=== PATIENT | male | born 1960 | race Asian ===

== ENCOUNTER 2020-01-25 15:40 | Inpatient (IN) | payer MEDICAID, SELFPAY ==
[2020-01-25] VITALS (21 sets, daily range): BP systolic 99–137; BP diastolic 69–96; PULSE 80–100; RESP 16–18; TEMP 36.7–37.2; O2SAT 91–99; BMI 23.6; BMI 23.1
--- NOTE | 2020-01-25 | IR_ITS ---
APPROVED REPORT Patient Location: Outpatient Laborer Shellfish Processing: HONG Gamboa RT (R) PROCEDURES Left heart catheterization Left ventriculogram Selective coronary angiogram Drug-eluting stent deployment to the proximal LAD preceded by thrombectomy Drug-eluting stent deployment to the mid dominant right coronary artery INDICATION Acute anterior ST elevation myocardial infarction, Coronary artery disease Informed consent was obtained prior to the procedure. TECHNIQUE One percent lidocaine used to anesthetize the right anterior aspect of the wrist. The right radial artery was accessed via the Seldinger technique. A 6 Citizen Of [place] sheath was placed in the right radial artery. 2.5 mg of verapamil, 800 mcg of nitroglycerin, 1mg Lidocaine and 5000 U Heparin were given through the arterial sheath. The Abdiel catheter was also used to perform left heart catheterization, left ventriculogram and selective coronary angiogram. Therapeutic heparin was administered along with Brilinta in the emergency department. The catheter was used to intubate the left main artery and a Choice PT wire was placed into the LAD. Because of the thrombus in the LAD a penumbra was used to aspirate the proximal LAD. Following this a 3 mm x 15 mm resolute yogi stent was deployed at 20 roland reducing the critical stenosis to 0%. 800 mcg of intracoronary nitroglycerin was administered after the procedure. RAMAN II flow was present before the procedure with RAMAN-3 flow after the procedure. Following this the catheter was used to intubate the right coronary artery and the same wire was placed distally. A 4 mm x 12 mm resolute yogi stent was deployed at 20 roland reducing the critical stenosis to 0%. RAMAN-3 flow was present before and after the procedure. At the end of the procedure the left ventriculogram and left heart catheterization was performed with the same catheter. At the end the procedure the apparatus was removed the sheath was removed and hemostasis was achieved using TR banding patient was transferred to the postop holding her stable condition ANGIOGRAPHIC RESULTS The left main artery Normal The left anterior descending artery Proximal complex 90% stenosis with thrombus. There is additional 10% mid stenoses followed by a long 60 to 70% distal stenosis The circumflex artery Nondominant normal The right coronary artery Large dominant with proximal luminal irregularities and has a mid vessel focal 90% stenosis The NEGRETE ventriculogram reveals Anterior apical akinesis estimated ejection fraction 20% The left ventricular end-diastolic pressure 40 mmHg IMPRESSION Acute anterior ST elevation myocardial infarction Successful thrombectomy followed by drug-eluting stent to the proximal LAD reducing the critical disease to 0% Persistent long moderate stenosis in the mid to distal LAD Critical disease in the mid dominant right coronary Successful stenting of a critically diseased mid large dominant right coronary artery reducing the stenosis to 0% Severely reduced ejection fraction with akinetic anterior apical wall Severely elevated LVEDP PLAN 1. Brilinta plus aspirin for 1 year 2. Standard therapy for systolic heart failure including Entresto and carvedilol along with loop diuretics and spironolactone and low-dose digoxin 3. LDL less than 55 to be achieved with high intensity statin 4. Echocardiogram prior to discharge home 5. Continuous telemetry monitoring for least 48 hours post OR 6. Patient should be discharged home with a LifeVest due to LV dysfunction Electronically signed by : Cruzito Ayala, 01/25/2020 18:07:51
--- NOTE | 2020-01-25 08:48 | ECG_ITS ---
APPROVED REPORT Exam: Resting ECG HR:78 bpm ECG Measurements Heart Rate 78 AXES TX 142 P 61 QRSd 96 QRS 213 QT 378 T 94 QTc 430 Conclusion Normal sinus rhythm Right superior axis deviation Late R-wave progression T wave abnormality, consider lateral ischemia Abnormal ECG Electronically signed by : Adams Bangura, 01/29/2020 13:58:11
--- NOTE | 2020-01-25 15:42 | XR_ITS ---
PROCEDURE: XR CHEST PORTABLE CLINICAL HISTORY: chest pain COMPARISON: No exams were available for comparison FINDINGS: The cardiomediastinal silhouette and pulmonary vascularity are within normal limits. The lungs are clear without infiltrates, suspicious nodules, or pleural effusions. There is a 9 mm opacity overlying the lower lung on the left which may be due to nipple shadow. No acute bony findings. IMPRESSION: Left-sided nodular opacity possibly due to nipple shadow and could be confirmed with nipple markers otherwise negative Dictated by: Rafa Jorgensen MD 01/25/2020 16:02 Rafa Jorgensen MD in [facility] 01/25/2020 16:02
--- NOTE | 2020-01-25 15:49 | PC.NURSE ---
rad at BS
[2020-01-25 16:01] LABS: Basophils % 0.2 % (0.1-2.0); Eosinophils # 0.2 K/mm3 (0.0-0.4); Eosinophils % 0.9 % (0.1-12.0); Hematocrit 43.6 % (42.0-52.0); Lymphocytes # 1.1 K/mm3 (0.7-4.5); Lymphocytes % 5.4 % (10-50); Mean Corpuscular HGB Conc 34.4 g/dL (31.8-35.4); Mean Corpuscular Hemoglobin 32.9 pg (27.0-31.2); Mean Corpuscular Volume 95.6 fl (80-94); Mean Platelet Volume 7.4 fl (7.4-10.4); Neutrophils # 18.1 K/mm3 (1.8-7.8); Neutrophils % 88.5 % (37.0-80.0); Platelet Count 332 K/mm3 (142-424); Red Blood Count 4.56 M/mm3 (4.60-6.20); Red Cell Distribution Width 13.5 % (11.5-17.5); White Blood Count 20.4 K/mm3 (4.8-10.8)
[2020-01-25 16:07] LABS: MANUAL DIFFERENTIAL MANUAL DIFFERENTIAL (MANUAL DIFF)
[2020-01-25 16:11] LABS: Anion Gap 10.8 mEq/L (5-15); Blood Urea Nitrogen 14 mg/dl (9-20); Calcium 9.5 mg/dl (8.4-10.2); Carbon Dioxide 29 mmol/L (22.0-30.0); Chloride 104 mmol/L (98-107); Creatinine Clearance Estimated 80 mL/min (50-200); Estimated Glomerular Filt Rate 86 ml/min (>60); GFR (African American) 104 ML/MIN (>60); Glucose 154 mg/dl (74-100); Potassium 3.8 mmoL/L (3.5-5.1); Sodium 140 mmol/L (136-145)
[2020-01-25 16:14] LABS: Lymphocytes % 7 % (10-50); Monocytes % 5 % (2-9); Neutrophils % 88 % (42-76); Total Cells Counted 100
[2020-01-25 16:15] LABS: Platelet Estimate Normal; RBC Morphology Normal
--- NOTE | 2020-01-25 16:16 | HMH.EDCP ---
ED Disposition Clinical Impression: NSTEMI (non-ST elevated myocardial infarction) Leukocytosis Qualifiers: Leukocytosis type: bandemia Qualified Code(s): D72.825 - Bandemia Disposition: Admitted As Inpatient Condition on Discharge: Serious Referrals: PCP,No [Primary Care Provider] - - Critical Care Critical Care Time: Yes Attestation: On 01/25/20, the high probability of a clinically significant, sudden or life threatening deterioration of the following system(s) required my full and direct attention, intervention and personal management. The time I documented below is in addition to time spent performing reported procedures but includes the following listed in this critical care notation. 30 min total time Total Critical Care Time: 30 Vital system(s) involved:: Circulatory Failure My critical care processes included: Assessment & monitoring of V/S, Initial and Re-exams, Data Review/Interpretation, Coordinating Care, Medication Orders and management, Documentation Medical Decision Making - Medical Records Medical records reviewed: Yes: I reviewed the patient's medical records. - Cheng Inquiry Pt receiving controlled substance: Yes Cheng was queried for this patient: No Risks and benefits of using a controlled substance: were discussed with pt by me Vital Signs: 01/25/20 15:41 Temperature 98.9 F Temperature Source Oral Pulse Rate [Apical] 95 H Respiratory Rate 16 Blood Pressure [Right Arm] 130/96 H Blood Pressure Mean [Right Arm] 107 Blood Pressure Source [Right Arm] Automatic Cuff Blood Pressure Position [Right Arm] Sitting 02 Sat by Pulse Oximetry 99 Oxygen Delivery Method Room Air - Lab Data Lab Results 01/25/20 15:48: WBC 20.4 H*, RBC 4.56 L, Hgb 15.0, Hct 43.6, MCV 95.6 H, MCH 32.9 H, MCHC 34.4, RDW 13.5, Plt Count 332, MPV 7.4, Neut % (Auto) 88.5 H, Lymph % (Auto) 5.4 L, [place] % (Auto) 5.0, Eos % (Auto) 0.9, Baso % (Auto) 0.2, Neut # (Auto) 18.1 H, Lymph # (Auto) 1.1, [place] # (Auto) 1.0, Eos # (Auto) 0.2, Baso # (Auto) 0.0, Total Counted 100, Neutrophils % (Manual) 88 H, Lymphocytes % (Manual) 7 L, Monocytes % (Manual) 5, Platelet Estimate Normal, RBC Morphology Normal 01/25/20 15:48: Sodium 140, Potassium 3.8, Chloride 104, Carbon Dioxide 29, Anion Gap 10.8, BUN 14, Creatinine 0.90, Estimated Creat Clear 80, Estimated GFR 86, Est GFR ( Amer) 104, Glucose 154 H, Calcium 9.5, Troponin I 190.00 H 01/25/20 15:48: NT-Pro-B Natriuret Pep 1800 H 01/25/20 15:48: D-Dimer 0.55 Result diagrams: 01/25/20 15:48 01/25/20 15:48 Orders (Tests/Meds): ED MEDICATIONS Discontinued Medications Generic Name Dose Route Start Last Admin Trade Name Dmitriq PRN Reason Stop Dose Admin Aspirin 324 mg 01/25/20 15:42 01/25/20 16:17 Aspirin 81mg Chewable Tablet PO 01/25/20 15:43 324 mg ONCE ONE Administration Morphine Sulfate 4 mg 01/25/20 16:14 01/25/20 16:19 Morphine 4mg/Ml Syringe IV 01/25/20 16:15 4 mg ONCE ONE Administration Ondansetron HCl 4 mg 01/25/20 16:14 01/25/20 16:19 Ondansetron 4mg/2ml Vial IV 01/25/20 16:15 4 mg ONCE ONE Administration ORDERS Category Date Time Status CTA Chest [CT angio chest] Stat Cat Scan 01/25/20 16:16 Ordered Covid-19 IgG/IgM ([facility]) Stat Lab 01/25/20 16:35 Ordered Troponin I Q3H Lab 01/25/20 18:45 Ordered Troponin I Q3H Lab 01/25/20 21:45 Ordered - Radiology Data #1 Image(s): Chest Image Reviewed: Yes I reviewed the patient's radiology results, Yes I discussed the image results w/the radiologist IMPRESSION: Left-sided nodular opacity possibly due to nipple shadow and could be confirmed with nipple markers otherwise negative - ECG Data Tracing #1 Normal ventricular rate of 94 bpm, normal NV interval, normal QTC. Sinus rhythm with nonspecific changes, ECG initial impression date: 01/25/20 ECG initial impression time: 15:38 - Reevaluation(s) Time: 16:40 Reevaluation #1: Patient was found to hav
--- NOTE | 2020-01-25 16:29 | PC.NURSE ---
Lab notified of troponin being so high they cannot result it, notified, pt states he has a 5/10 pain in his chest, notified, cardiology paged
[2020-01-25 16:30] LABS: D-Dimer 0.55 ug/mL (0.15-8.0)
--- NOTE | 2020-01-25 16:31 | PC.NURSE ---
speaking to Cardiology security control assessor
[2020-01-25 16:33] LABS: NT Pro Brain Natriuretic Pep. 1800 pg/mL (0-125)
--- NOTE | 2020-01-25 16:44 | PC.NURSE ---
Lakia MEYER here to transport pt to cathlab
--- NOTE | 2020-01-25 16:45 | PC.NURSE ---
notified of troponin
--- NOTE | 2020-01-25 16:45 | PC.NURSE ---
EKG taken to Dr Ayala per his request. Dr Ayala wants pt to come to laborer ammunition assembly. lab instructor nurse Lakia Works come down with stretcher as well as list of orders Lucy wants.
--- NOTE | 2020-01-25 16:46 | PC.NURSE ---
PHIL BURT speaking with with Dr Tejada who is bi application developer for service.
--- NOTE | 2020-01-25 16:48 | PC.NURSE ---
Dr Tejada accepted pt, pt going to cathlab at this time
[2020-01-25 17:10] LABS: Coronavirus 19 IgG Antibody Positive (Negative); Coronavirus 19 IgM Antibody Negative (Negative)
--- NOTE | 2020-01-25 17:15 | SUR.PREOP ---
Patient received from ER. Patients is stable, alert and oriented x 4. Blood pressure 133/77, hr sinus tach, rate 115. Respirations 14, oxygen saturation 97% on room air
[2020-01-25 17:50] LABS: Activated Partial Thrombo Time 25.2 seconds (23.6-34.0)
[2020-01-25 18:18] LABS: CATHL Activated Clotting Time > 400 SEC (74-125)
[2020-01-25 18:44] LABS: INR 0.96 (0.9-1.1); Prothrombin Time 10.7 seconds (9.4-11.8)
--- NOTE | 2020-01-25 19:09 | PC.NURSE ---
elise sol in flower shop laborer/designer stated to not give any brilinta tonight.
--- NOTE | 2020-01-25 19:17 | PC.NURSE ---
pt c/o cp notified md aguero whom stated i did not need to take ekg to er to be read and stated he would have pain and to order morphine 4mg iv [id number] as needed for chest pain. pt refused morphine to be given and rn asked if he would take the tylenol and he stated the dull pain is only a 5 on a scale of 0-10 and does NOT want any medications for it.
--- NOTE | 2020-01-25 19:45 | PC.NURSE ---
spoke with [facility] pharmacy regarding morphine order and he stated he is going to put in one time doses as needed.
--- NOTE | 2020-01-25 20:19 | PC.NURSE ---
Brilinta not administered. Loading dose administered in tailings dam laborer.
--- NOTE | 2020-01-25 23:08 | PC.NURSE ---
Pt states pain has improved
[2020-01-26] VITALS (17 sets, daily range): BP systolic 95–115; BP diastolic 53–84; PULSE 78–100; RESP 15–22; TEMP 37.1–37.2; O2SAT 97–100
--- NOTE | 2020-01-26 05:06 | PC.NURSE ---
No acute changes. Pt has slept at intervals. He states that chest pain has improved. Declines any pain medication. (R) radial cath site with DSG is C/D/I. No hematoma or drainage noted. VS have remained stable. Pt is NSR on telemetry. 400 cc Urine output for shift. No other concerns at this time. Will continue to monitor.
[2020-01-26 07:00] LABS: Chloride 104 mmol/L (98-107); Potassium 4.4 mmoL/L (3.5-5.1); Sodium 140 mmol/L (136-145)
[2020-01-26 07:03] LABS: Anion Gap 10.4 mEq/L (5-15); Blood Urea Nitrogen 12 mg/dl (9-20); Calcium 9.6 mg/dl (8.4-10.2); Carbon Dioxide 30 mmol/L (22.0-30.0); Creatinine Clearance Estimated 78 mL/min (50-200); Estimated Glomerular Filt Rate 86 ml/min (>60); GFR (African American) 104 ML/MIN (>60); Glucose 135 mg/dl (74-100)
[2020-01-26 07:08] LABS: MANUAL DIFFERENTIAL MANUAL DIFFERENTIAL (MANUAL DIFF)
[2020-01-26 07:40] LABS: White Blood Count 19.2 K/mm3 (4.8-10.8)
[2020-01-26 07:41] LABS: Red Cell Distribution Width 13.5 % (11.5-17.5)
[2020-01-26 07:42] LABS: Mean Platelet Volume 7.2 fl (7.4-10.4); Platelet Count 270 K/mm3 (142-424)
[2020-01-26 07:43] LABS: Monocytes % 7.1 % (1.7-9.3)
[2020-01-26 07:44] LABS: Basophils % 0.2 % (0.1-2.0); Eosinophils % 0.1 % (0.1-12.0); Lymphocytes # 1.7 K/mm3 (0.7-4.5); Neutrophils # 16.1 K/mm3 (1.8-7.8)
[2020-01-26 07:45] LABS: Monocytes # 1.4 K/mm3 (0.1-1.0)
--- NOTE | 2020-01-26 08:33 | PC.NURSE ---
RT @ BS completing EKG
[2020-01-26 08:40] LABS: Red Blood Count 4.49 M/mm3 (4.60-6.20)
[2020-01-26 08:41] LABS: Hematocrit 43.9 % (42.0-52.0); Hemoglobin 14.5 g/dL (14.1-18.0); Lymphocytes % 8.7 % (10-50); Mean Corpuscular Hemoglobin 32.3 pg (27.0-31.2); Mean Corpuscular Volume 97.8 fl (80-94); Neutrophils % 83.9 % (37.0-80.0)
--- NOTE | 2020-01-26 08:47 | HMH.HP ---
*Chief complaint: Chest pain <LopezInocencia 01/26/20 08:55> *History of present illness: Mr. Tellez is a 59-year-old male who has been relatively healthy who presented to the emergency room yesterday with worsening chest pain. He stated the pain worsened when he was doing his push-ups. He stated he had previous heart discomfort for the past 2 weeks but when it became worse he decided he needed to seek help. He relates that he takes no medicines. He does not have a family physician. He does have a positive family history. He denies previous heart issues and takes no medications. He does smoke daily marijuana, 2 to 3 cigarettes a day. He drinks alcohol occasionally and has had GI upsets with this. He does work which requires lifting, pushing and pulling. With evaluation in the emergency room he was found to have a severely elevated troponin at 190. His BNP was 1800. Electrolytes were normal and kidney function was normal. White blood cell count was elevated at 20,400. He was felt to have acute coronary syndrome and was taken Emergently to catheterization lab for intervention. He was given heparin as well as Brilinta. With cardiac cath the following impressionI was noted:: Acute anterior ST elevation myocardial infarction Successful thrombectomy followed by drug-eluting stent to the proximal LAD reducing the critical disease to 0% Persistent long moderate stenosis in the mid to distal LAD Critical disease in the mid dominant right coronary Successful stenting of a critically diseased mid large dominant right coronary artery reducing the stenosis to 0% Severely reduced ejection fraction with akinetic anterior apical wall Severely elevated LVEDP This a.m. patient denies chest discomfort. Nurses reported that he had chest discomfort during the night but refused any as needed medication. He states he slept at intervals. He feels his breathing is fine. This a.m. laboratory data revealed white blood cell count of 19,200. Electrolytes are normal and renal function is normal. <Inocencia Lopez 01/26/20 09:07> [facility] History Medical History: Denies:: Cancer, Diabetes Mellitus Type 1, Diabetes Mellitus Type 2, MRSA <Inocencia Lopez 01/26/20 08:55> *Have you ever received a pneumonia vaccine?: No <Inocencia Lopez 01/26/20 08:55> *Have you received a flu vaccine this season?: No <Inocencia Lopez 01/26/20 08:55> Amputation: No <Inocencia Lopez 01/26/20 08:55> - *Social History Smoking Status: Current every day smoker <Inocencia Lopez 01/26/20 08:55> Tobacco Type: cigarettes (Smokes 2-3 marijuana cigarettes a day.) <LopezInocencia 01/26/20 09:02> Alcohol Intake: current <LopezInocencia 01/26/20 09:02> Alcohol Intake Frequency:: a few times a month <Lopez,Inocencia Cuellar 01/26/20 09:02> Substance Use Type: marijuana <Inocencia Lopez 01/26/20 08:55> Last Used Substance: days (ago) <LopezInocencia Cuellar 01/26/20 08:55> *Occupational Status:: employed <JohnInocencia 01/26/20 08:55> Household Members: spouse <LopezInocencia 01/26/20 09:02> *Travel in the last 8 weeks: None <Inocencia Lopez 01/26/20 08:55> Family Hx:: Cancer, Coronary Artery Disease, Mental illness, no Diabetes <LopezInocencia 01/26/20 09:02> Review of Systems - Constitutional Denies fever(s), Denies lack of energy <Lopez,Inocencia 01/26/20 09:02> - Eyes Denies change in vision <Lopez,Inocencia 01/26/20 09:02> - ENT Denies headache(s), Denies nasal congestion, Denies sore throat, Denies dizziness <Inocencia Lopez 01/26/20 09:02> - *Cardiovascular Reports chest pain, Denies leg pain with activity, Denies excessive sweating, Denies shortness of breath, Denies irregular heart rhythm, Denies leg swelling <Inocencia Lopez 01/26/20 09:02> - *Respiratory Denies chest congestion, Denies cough, Denies shortness of breath <JohnInocencia 01/26/20 09:02> - *Gastrointestinal Denies abdominal pain, Denies constipation, Denies heartburn, Denies nausea, D
--- NOTE | 2020-01-26 08:51 | PC.NURSE ---
Braydon REGALADO @ BS rounding.
--- NOTE | 2020-01-26 08:56 | HMH.CNCARD ---
History of Present Illness Consult date: 01/26/20 Requesting physician: Miguel Tejada Consult reason: chest pain Chief complaint: chest pain Additional Medical History:: 1. Family history of coronary artery disease in his brother who at age 40 2. Marijuana use 3. Occasional alcohol use 4. Intermittent GERD with alcohol use History of present illness: 59-year-old white male presented to the emergency department with 2-week intermittent history of anterior chest discomfort described as mild until yesterday with acute worsening. Patient found to have markedly elevated troponin at 190 and was sent to the [facility] for further evaluation. Patient did receive stents to his LAD and RCA with left ventricular ejection fraction noted to be 20-25% with anterior wall akinesis. Patient has done well overnight. No significant arrhythmias noted. EKG this morning is sinus with continued ST elevation anteriorly. Blood pressure is around 100-110 mmHg systolic. Heart rates in the 80s beat per minute range. Discussed results of his cardiac cath along with recommendation for medical leave from work due to his ST elevation CO and need for LifeVest. [facility] History Medical History: Denies:: Cancer, Diabetes Mellitus Type 1, Diabetes Mellitus Type 2, MRSA *Have you ever received a pneumonia vaccine?: No *Have you received a flu vaccine this season?: No Amputation: No - *Social History Smoking Status: Current every day smoker Alcohol Intake: never Substance Use Type: marijuana Last Used Substance: days (ago) *Occupational Status:: employed *Travel in the last 8 weeks: None Family Hx:: No significant family history Meds Allergies Allergy/AdvReac Type Severity Reaction Status Date / Time No Known Allergies Allergy Verified 01/25/20 15:41 Exam Vital signs and Labs for Last 24 Hours: Temp Pulse Resp BP Pulse Ox 98.9 F 78 18 98/67 L 97 01/26/20 08:00 01/26/20 06:00 01/26/20 06:00 01/26/20 06:00 01/26/20 06:00 Laboratory Results - last 24 hr 01/25/20 15:48: WBC 20.4 H*, RBC 4.56 L, Hgb 15.0, Hct 43.6, MCV 95.6 H, MCH 32.9 H, MCHC 34.4, RDW 13.5, Plt Count 332, MPV 7.4, Neut % (Auto) 88.5 H, Lymph % (Auto) 5.4 L, [place] % (Auto) 5.0, Eos % (Auto) 0.9, Baso % (Auto) 0.2, Neut # (Auto) 18.1 H, Lymph # (Auto) 1.1, [place] # (Auto) 1.0, Eos # (Auto) 0.2, Baso # (Auto) 0.0, Total Counted 100, Neutrophils % (Manual) 88 H, Lymphocytes % (Manual) 7 L, Monocytes % (Manual) 5, Platelet Estimate Normal, RBC Morphology Normal 01/25/20 15:48: Sodium 140, Potassium 3.8, Chloride 104, Carbon Dioxide 29, Anion Gap 10.8, BUN 14, Creatinine 0.90, Estimated Creat Clear 80, Estimated GFR 86, Est GFR ( Amer) 104, Glucose 154 H, Calcium 9.5, Troponin I 190.00 H 01/25/20 15:48: NT-Pro-B Natriuret Pep 1800 H 01/25/20 15:48: D-Dimer 0.55 01/25/20 15:48: SARS-CoV-2 IgG Ab (Rapid) Positive A, SARS-CoV-2 IgM Ab (Rapid) Negative 01/25/20 15:48: APTT 25.2 01/25/20 15:48: PT 10.7, INR 0.96 01/25/20 17:51: Activated Clotting Time > 400 H* 01/26/20 05:55: WBC 19.2 H, RBC 4.49 L, Hgb 14.5, Hct 43.9, MCV 97.8 H, MCH 32.3 H, MCHC 33.0, RDW 13.5, Plt Count 270, MPV 7.2 L, Neut % (Auto) 83.9 H, Lymph % (Auto) 8.7 L, [place] % (Auto) 7.1, Eos % (Auto) 0.1, Baso % (Auto) 0.2, Neut # (Auto) 16.1 H, Lymph # (Auto) 1.7, [place] # (Auto) 1.4 H, Eos # (Auto) 0.0, Baso # (Auto) 0.0 01/26/20 05:55: Sodium 140, Potassium 4.4, Chloride 104, Carbon Dioxide 30, Anion Gap 10.4, BUN 12, Creatinine 0.90, Estimated Creat Clear 78, Estimated GFR 86, Est GFR ( Amer) 104, Glucose 135 H, Calcium 9.6 I & O for Last 24 hours: Intake & Output 01/23/20 01/24/20 01/25/20 01/26/20 11:59 11:59 11:59 11:59 Intake Total 0 / 0 Output Total 775 / 775 Balance -775 / -775 Weight 156 lb 5 oz - *Routine Neck Exam Present: supple. Absent: lymphadenopathy - *Routine Respiratory Exam Present: CTA bilaterally - *Routine Cardiovascular Exam Present: RRR - *Routine Abdo
[2020-01-26 09:24] LABS: Cholesterol 163 mg/dl (140-200); Triglycerides 106 mg/dl (30-150); VLDL Cholesterol 21 mg/dL (0-40)
[2020-01-26 09:25] LABS: Chol/HDL Ratio 2.1 (1-3.5); HDL Cholesterol 76 mg/dl (40-60)
[2020-01-26 09:28] LABS: Lymphocytes % 10 % (10-50); Monocytes % 4 % (2-9); Neutrophils % 85 % (42-76); Platelet Estimate Normal; Total Cells Counted 100
[2020-01-26 09:36] LABS: Direct LDL Cholesterol 67.23 mg/dL (100-129)
[2020-01-26 09:47] LABS: RBC Morphology Normal
--- NOTE | 2020-01-26 11:42 | HMH.PHAVTE ---
[facility] Pharmacy VTE Monitoring - Patient Demographics Admission date: 01/25/20 Report Date: 01/26/20 Time: 11:43 Allergies/Adverse Reactions: Patient Allergies No Known Allergies Allergy (Verified 01/25/20 15:41) Height: 1.75 m Weight: 70.902 kg Patient Problems: Current Active Problems NSTEMI (non-ST elevated myocardial infarction) (Acute) Leukocytosis (Acute) Acute coronary syndrome (Acute) Status post coronary artery stent placement (Acute) ST elevation (STEMI) myocardial infarction involving left anterior descending coronary artery (Acute) Severe left ventricular systolic dysfunction (Acute) - VTE Risk Labs: VTE Related Lab Results Hgb 14.5 g/dL (14.1-18.0) 01/26/20 05:55 Hct 43.9 % (42.0-52.0) 01/26/20 05:55 Plt Count 270 K/mm3 (142-424) 01/26/20 05:55 PT 10.7 seconds (9.4-11.8) 01/25/20 15:48 INR 0.96 (0.9-1.1) 01/25/20 15:48 APTT 25.2 seconds (23.6-34.0) 01/25/20 15:48 BUN 12 mg/dl (9-20) 01/26/20 05:55 Creatinine 0.90 mg/dl (0.66-1.25) 01/26/20 05:55 Estimated Creat Clear 78 mL/min (50-200) 01/26/20 05:55 Was VTE Risk Assessment Performed: Yes VTE Score: 3 VTE Risk Level: Low Risk - Prophylaxis VTE Prophylaxis Ordered?: Yes Types of VTE Prophylaxis: TEDS Knee High Location of Applied Device: Bilateral Lower Extremeties
--- NOTE | 2020-01-26 16:52 | CA_ITS ---
APPROVED REPORT EXAM: Comprehensive 2D, Doppler, and color-flow Echocardiogram Paint Roller Assembler: Kelly Bey CRT Ht: 5 ft 9 in Wt: 160lbs BSA: 1.88 BP: 130/96 mmHg Indications: Chest Pain, Shortness of Breath, Status/Post OR, quit smoking yesterday, low ef on cath yesterday, stents yesterday M-Mode Dimensions RVDd 2.59 cm (0.9-2.6) LVDd 4.86 cm (3.5-5.7) LVDs 3.91 cm (3.5-5.7) IVSd 1.03 cm (0.6-1.1) PWd 0.97 cm (0.6-1.1) EF (Teich) 40.10% FS 19.50% EDV (Teich) 110.70 mL ESV (Teich) 66.30 mL LV Diastology E/A Ratio 0.73 Mitral Valve MV A Velocity 73.00 (40-130 cm/s) Left Ventricle Left atrium is mildly enlarged, left ventricle is mildly dilated, severely this left ventricular systolic function, visually estimated ejection fraction approximately 15 to 20%, there is marked hypo-to akinesis involving the anterior, anterior apical, anterolateral, mid to distal septum. There is likely left ventricular apical mural thrombus present. Grade 1 diastolic dysfunction seen without tissue Doppler evidence of raise left atrial pressure. Right Ventricle Right atrium and right ventricular normal size and contractility. Aortic Valve Aortic valve is minimally thickened and fibrosed, there is no aortic stenosis or aortic insufficiency, the aortic outflow velocities are low suggestive of low cardiac output state. Mitral Valve Mitral valve leaflets are minimally thickened, there is mild mitral regurgitation. Tricuspid Valve Tricuspid valve is grossly normal, there is mild tricuspid regurgitation, calculated right ventricular systolic pressure is 35 mmHg. Pulmonic Valve Pulmonic valve is poorly visualized. Great Vessels Aortic root is normal size. Pericardium No significant pericardial effusion noted. Conclusion 1. Mildly enlarged left atrium, mildly dilated left ventricle, severely this left ventricular systolic function, visually estimated ejection fraction 15 to 20% with multiple segmental wall motion abnormality described above, there is likely left ventricular apical mural thrombus present, a repeat study with Definity contrast is recommended. Grade 1 diastolic dysfunction seen without tissue Doppler evidence of raise left atrial pressure. 2. Doppler evidence of low cardiac output state. 3. Mild mitral and tricuspid regurgitation. Calculated right ventricular systolic pressure 35 mmHg. 4. No significant pericardial effusion noted. Electronically signed by : Jasson Stauffer, 01/26/2020 19:30:17
--- NOTE | 2020-01-26 19:49 | PC.NURSE ---
PT DONE WELL TODAY. NO C/O CP. VSS. LUNGS REMAIN CLEAR. AMBULATES INDEPENDENTLY TO RESTROOM. WILL CONT. TO MONITOR.
[2020-01-27] VITALS (8 sets, daily range): BP systolic 91–130; BP diastolic 61–82; PULSE 77–110; RESP 14–18; TEMP 36.9–37.3; O2SAT 98–99; BMI 22.4
[2020-01-27 05:48] LABS: Chloride 106 mmol/L (98-107)
[2020-01-27 05:49] LABS: Basophils # 0.1 K/mm3 (0-0.2); Basophils % 0.3 % (0.1-2.0); Eosinophils # 0.2 K/mm3 (0.0-0.4); Eosinophils % 1.2 % (0.1-12.0); Hematocrit 43.2 % (42.0-52.0); Hemoglobin 14.5 g/dL (14.1-18.0); Lymphocytes # 2.3 K/mm3 (0.7-4.5); Lymphocytes % 15.2 % (10-50); Mean Corpuscular HGB Conc 33.6 g/dL (31.8-35.4); Mean Corpuscular Hemoglobin 32.1 pg (27.0-31.2); Mean Corpuscular Volume 95.7 fl (80-94); Mean Platelet Volume 7.5 fl (7.4-10.4); Monocytes # 0.9 K/mm3 (0.1-1.0); Monocytes % 5.8 % (1.7-9.3); Neutrophils # 11.9 K/mm3 (1.8-7.8); Neutrophils % 77.5 % (37.0-80.0); Platelet Count 258 K/mm3 (142-424); Potassium 3.9 mmoL/L (3.5-5.1); Red Blood Count 4.52 M/mm3 (4.60-6.20); Red Cell Distribution Width 13.4 % (11.5-17.5); Sodium 136 mmol/L (136-145); White Blood Count 15.3 K/mm3 (4.8-10.8)
[2020-01-27 05:51] LABS: Blood Urea Nitrogen 13 mg/dl (9-20); Creatinine Clearance Estimated 78 mL/min (50-200); Estimated Glomerular Filt Rate 115 ml/min (>60); GFR (African American) 139 ML/MIN (>60)
[2020-01-27 05:52] LABS: Anion Gap 8.9 mEq/L (5-15); Calcium 9.2 mg/dl (8.4-10.2); Carbon Dioxide 25 mmol/L (22.0-30.0); Glucose 114 mg/dl (74-100)
[2020-01-27 05:56] LABS: MANUAL DIFFERENTIAL MANUAL DIFFERENTIAL (MANUAL DIFF)
--- NOTE | 2020-01-27 06:45 | PC.NURSE ---
A&OX3. ADMINISTRATIVE OFFICER EQUAL BILAT. NO COMPLAINTS STATED THIS SHIFT. LUNGS NOTED CLEAR T/ AUSCULTATION. TOLERATED RA WELL. PULSES +2, CAP REFILL <3 SEC. NSR PER CARBON SEQUESTRATION PLANT MANAGER. ABDOMEN NONDISTENDED, ACTIVE BOWEL SOUNDS, SOFT AND NONTENDER PER PALPATION. NO BM REPORTED THIS SHIFT. RIGHT RADIAL DRESSING NOTED CDI. INDEPENDENT WITH ADLS. VSS. WILL CONTINUE TO MONITOR.
--- NOTE | 2020-01-27 08:25 | HMH.ACPN2 ---
<Inocencia Lopez - Last Filed: 01/27/20 08:44> Internal Medicine - PN: Subj *Date: 01/27/20 *Time: 08:44 Interval history: Patient reports that he did sleep at intervals. He has some left chest wall soreness with certain movements. His breathing is been fine. He is eating as usual. He has not been out of bed. Bowels have not moved. Exam Vital signs and Labs for Last 24 Hours: Temp Pulse Resp BP Pulse Ox 99.2 F 80 16 96/63 L 98 01/27/20 00:00 01/27/20 04:00 01/27/20 00:00 01/27/20 00:00 01/27/20 00:00 Laboratory Results - last 24 hr 01/26/20 05:55: RBC 4.49 L, Hgb 14.5, Hct 43.9, MCV 97.8 H, MCH 32.3 H, Neut % (Auto) 83.9 H, Lymph % (Auto) 8.7 L, Total Counted 100, Neutrophils % (Manual) 85 H, Lymphocytes % (Manual) 10, Monocytes % (Manual) 4, Basophils % (Manual) 1.0, Platelet Estimate Normal, RBC Morphology Normal 01/26/20 05:55: Triglycerides 106, Cholesterol 163, LDL Cholesterol Direct 67.23 L, VLDL Cholesterol 21, HDL Cholesterol 76 H, Cholesterol/HDL Ratio 2.1 01/27/20 05:30: WBC 15.3 H, RBC 4.52 L, Hgb 14.5, Hct 43.2, MCV 95.7 H, MCH 32.1 H, MCHC 33.6, RDW 13.4, Plt Count 258, MPV 7.5, Neut % (Auto) 77.5, Lymph % (Auto) 15.2, [place] % (Auto) 5.8, Eos % (Auto) 1.2, Baso % (Auto) 0.3, Neut # (Auto) 11.9 H, Lymph # (Auto) 2.3, [place] # (Auto) 0.9, Eos # (Auto) 0.2, Baso # (Auto) 0.1 01/27/20 05:30: Sodium 136, Potassium 3.9, Chloride 106, Carbon Dioxide 25, Anion Gap 8.9, BUN 13, Creatinine 0.70 D, Estimated Creat Clear 78, Estimated GFR 115, Est GFR ( Amer) 139 D, Glucose 114 H, Calcium 9.2 I & O for Last 24 hours: Intake & Output 01/24/20 01/25/20 01/26/20 01/27/20 11:59 11:59 11:59 11:59 Intake Total 0 / 0 360 / 360 Output Total 975 / 975 500 / 500 Balance -975 / -975 -140 / -140 Weight 156 lb 5 oz - Constitutional no acute distress - *Routine Respiratory Exam Present: CTA bilaterally (Anteriorly and posteriorly) - *Routine Cardiovascular Exam Present: RRR (Monitor showing sinus rhythm) - *Routine Abdominal Exam Present: soft, normoactive bowel sounds. Absent: tenderness, distended - *Routine Extremities Exam Absent: edema, calf tenderness - *Routine Neurological Exam Present: alert, oriented X3 Assessment and Plan (1) ST elevation (STEMI) myocardial infarction involving left anterior descending coronary artery Status: Acute Category: Medical Code(s): I21.02 - ST elevation (STEMI) myocardial infarction involving left anterior descending coronary artery (2) Leukocytosis Status: Acute Qualifiers: Leukocytosis type: bandemia Qualified Code(s): D72.825 - Bandemia Category: Medical Code(s): D72.829 - Elevated white blood cell count, unspecified (3) Severe left ventricular systolic dysfunction Status: Acute Category: Medical Code(s): I51.9 - Heart disease, unspecified - Assessment and plan all Dx Assessment and Plan for all problems:: LifeVest should be here today. Medications as per cardiology. We will follow their direction for discharge. <Miguel Tejada - Last Filed: 01/27/20 11:54> Internal Medicine - PN: Subj *Date: 01/27/20 *Time: 11:54 Exam Vital signs and Labs for Last 24 Hours: Temp Pulse Resp BP Pulse Ox 98.5 F 104 H 14 130/82 99 01/27/20 08:00 01/27/20 11:00 01/27/20 11:00 01/27/20 11:00 01/27/20 11:00 Laboratory Results - last 24 hr 01/27/20 05:30: WBC 15.3 H, RBC 4.52 L, Hgb 14.5, Hct 43.2, MCV 95.7 H, MCH 32.1 H, MCHC 33.6, RDW 13.4, Plt Count 258, MPV 7.5, Neut % (Auto) 77.5, Lymph % (Auto) 15.2, [place] % (Auto) 5.8, Eos % (Auto) 1.2, Baso % (Auto) 0.3, Neut # (Auto) 11.9 H, Lymph # (Auto) 2.3, [place] # (Auto) 0.9, Eos # (Auto) 0.2, Baso # (Auto) 0.1, Total Counted 100, Neutrophils % (Manual) 84 H, Lymphocytes % (Manual) 8 L, Monocytes % (Manual) 8, Platelet Estimate Normal, RBC Morphology Normal 01/27/20 05:30: Sodium 136, Potassium 3.9, Chloride 106, Carbon Dioxide 25, Anion Gap 8.9, BUN 13, Cre
[2020-01-27 08:32] LABS: Lymphocytes % 8 % (10-50); Monocytes % 8 % (2-9); Neutrophils % 84 % (42-76); Platelet Estimate Normal; RBC Morphology Normal; Total Cells Counted 100
--- NOTE | 2020-01-27 11:04 | HMH.PNCARD ---
Subjective Date: 01/27/20 Time: 11:04 Principal diagnosis: stemi Interval history: This is a 59-year-old white gentleman who presented to the emergency department with a two-week history of chest pain. The patient had a markedly elevated troponin and was sent to the cardiac catheterization laboratory. He received stents to the LAD and right coronary artery. The patient was found to have an ejection fraction of 20 to 25% with anterior wall akinesis. We are currently awaiting a LifeVest for the patient due to his severe LV dysfunction. This morning he denies any chest pain or pressure. He denies any shortness of breath or edema. He denies any fever, chills, nausea, vomiting, diarrhea, PND or orthopnea. Exam Vital signs and Labs for Last 24 Hours: Temp Pulse Resp BP Pulse Ox 98.5 F 86 16 106/71 L 98 01/27/20 08:00 01/27/20 08:00 01/27/20 08:00 01/27/20 08:00 01/27/20 08:00 Laboratory Results - last 24 hr 01/27/20 05:30: WBC 15.3 H, RBC 4.52 L, Hgb 14.5, Hct 43.2, MCV 95.7 H, MCH 32.1 H, MCHC 33.6, RDW 13.4, Plt Count 258, MPV 7.5, Neut % (Auto) 77.5, Lymph % (Auto) 15.2, [place] % (Auto) 5.8, Eos % (Auto) 1.2, Baso % (Auto) 0.3, Neut # (Auto) 11.9 H, Lymph # (Auto) 2.3, [place] # (Auto) 0.9, Eos # (Auto) 0.2, Baso # (Auto) 0.1, Total Counted 100, Neutrophils % (Manual) 84 H, Lymphocytes % (Manual) 8 L, Monocytes % (Manual) 8, Platelet Estimate Normal, RBC Morphology Normal 01/27/20 05:30: Sodium 136, Potassium 3.9, Chloride 106, Carbon Dioxide 25, Anion Gap 8.9, BUN 13, Creatinine 0.70 D, Estimated Creat Clear 78, Estimated GFR 115, Est GFR ( Amer) 139 D, Glucose 114 H, Calcium 9.2 I & O for Last 24 hours: Intake & Output 01/24/20 01/25/20 01/26/20 01/27/20 23:59 23:59 23:59 23:59 Intake Total 360 / 360 250 / 250 Output Total 325 / 325 1150 / 1150 475 / 475 Balance -325 / -325 -790 / -790 -225 / -225 Weight 156 lb 5 oz 151 lb 5 oz - Constitutional no acute distress, average body habitus - *Routine HEENT Exam Head: Present: normocephalic, atraumatic Eye: Present: EOMI, PERRL ENT: Present: mucous membranes moist - *Routine Neck Exam Present: supple, full ROM, normal carotid upstroke. Absent: JVD, carotid bruit, lymphadenopathy - *Routine Respiratory Exam Present: CTA bilaterally - *Routine Cardiovascular Exam Present: RRR, Normal S1, Normal S2. Absent: murmur - *Routine Abdominal Exam Present: soft, normoactive bowel sounds. Absent: tenderness, distended - *Routine Extremities Exam Present: full ROM, pulses intact, normal capillary refill. Absent: cyanosis, clubbing, edema - *Routine Skin Exam Present: intact, warm. Absent: erythema, rash - *Routine Neurological Exam Present: alert, oriented X3, CN II-XII intact. Absent: sensory deficit, motor deficit Progress Note: A&P (1) ST elevation (STEMI) myocardial infarction involving left anterior descending coronary artery Status: Acute (2) Leukocytosis Status: Acute (3) Severe left ventricular systolic dysfunction Status: Acute (4) Systolic CHF Status: Acute (5) Ischemic cardiomyopathy Status: Acute Assessment and Plan for All Diagnoses:: Plan: 1. The patient is status post STEMI with thrombectomy and stent placement to the LAD as well as stent placement to the right coronary artery. He will be on Brilinta and aspirin for dual antiplatelet therapy. 2. The patient did have severe LV dysfunction with an ejection fraction of 20 to 25%. The patient has ischemic cardiomyopathy with anterior wall akinesis. Given his severe LV dysfunction the patient is at increased risk for sudden cardiac and given this increased risk of sudden cardiac the patient will need a LifeVest in place prior to discharge home. The patient is agreeable in wearing the LifeVest. 3. The patient has already been started on Entresto secondary to his systolic congestive heart failure and ischemic cardiomyopathy. He is tolerating this
--- NOTE | 2020-01-27 14:53 | HMH.PHACLD ---
Gasper Quinones has received discharge medication counseling on the following medications: NEW MEDICATIONS: ASPIRIN, BRILINTA, ENTRESTO, METOPROLOL, LIPITOR
--- NOTE | 2020-01-29 09:12 | HMH.DCSUM ---
General - General Admission date:: 01/25/20 Discharge date: 01/27/20 HPI HPI: Mr. Tellez is a 59-year-old male who had been relatively healthy who presented to the emergency room with worsening chest pain. He stated the pain worsened when he was doing his push-ups. He stated he had previous heart discomfort for the past 2 weeks but when it became worse he decided he needed to seek help. He related that he takes no medicines. He did not have a family physician. He noted a positive family history. He denied previous heart issues. He does smoke daily marijuana, 2 to 3 cigarettes a day. He drinks alcohol occasionally and has had GI upsets with this. He does work which requires lifting, pushing and pulling. With evaluation in the emergency room he was found to have a severely elevated troponin at 190. His BNP was 1800. Electrolytes were normal and kidney function was normal. White blood cell count was elevated at 20,400. He was felt to have acute coronary syndrome and was taken Emergently to catheterization lab for intervention. He was given heparin as well as Brilinta. With cardiac cath the following impressionI was noted:: Acute anterior ST elevation myocardial infarction Successful thrombectomy followed by drug-eluting stent to the proximal LAD reducing the critical disease to 0% Persistent long moderate stenosis in the mid to distal LAD Critical disease in the mid dominant right coronary Successful stenting of a critically diseased mid large dominant right coronary artery reducing the stenosis to 0% Severely reduced ejection fraction with akinetic anterior apical wall Severely elevated LVEDP The following a.m. patient denied chest discomfort. Nurses reported that he had chest discomfort during the night but refused any as needed medication. He stated he slept at intervals. He felt his breathing was fine. Repe laboratory data revealed white blood cell count of 19,200. Electrolytes were normal and renal function was normal. Hospital Course Hospital Course: After cardiac catheterization and admission cardiology follow patient throughout his stay. Medical leave from work foe 12 [address] elevation AL and need for a LifeVest was discussed with him. He was monitored for arrhythmias for an additional 48 hours. Entresto and Coreg were initiated and he continued on Brilinta and aspirin for dual antiplatelet therapy. He was noted to have a 20 to 25% ejection fraction delineating ischemic cardiomyopathy with anterior wall akinesis. Patient was agreeable to wearing the LifeVest. Patient did have some chest wall soreness. He ate without difficulty. He was able to ambulate without problems. On 01/27/2020 he had a LifeVest placed. He was stable to be discharged home. Discharged home in stable condition. Plan as per cardiology: 1. The patient is status post STEMI with thrombectomy and stent placement to the LAD as well as stent placement to the right coronary artery. He will be on Brilinta and aspirin for dual antiplatelet therapy. 2. The patient did have severe LV dysfunction with an ejection fraction of 20 to 25%. The patient has ischemic cardiomyopathy with anterior wall akinesis. Given his severe LV dysfunction the patient is at increased risk for sudden cardiac and given this increased risk of sudden cardiac the patient will need a LifeVest in place prior to discharge home. The patient is agreeable in wearing the LifeVest. 3. The patient has already been started on Entresto secondary to his systolic congestive heart failure and ischemic cardiomyopathy. He is tolerating this well. 4. We will get him started on Toprol-XL 12.5 mg p.o. daily for a beta-myrna secondary to his systolic congestive heart failure and coronary artery disease. 5. His blood pressure is acceptable at this time. 6. His coronary artery disease is likely stable. 7. His LDL goal is less than 55. LDL 67. He will be started
== END 2020-01-27 15:55 | disposition home or self-care (01) | DRG 247 ==
LOC: ER 16:52 → CATHLAB 17:04 → 2ND 17:10
PROVIDERS: Internal Medicine; Physician Assistant; Admitting Provider Family Medicine; Emergency Provider Emergency Medicine; Visit Provider Family Medicine
PROC: 027135Z Dilation of Coronary Artery, Two Arteries with Two Drug-eluting Intraluminal Devices, Percutaneous Approach (ICD-10-PCS; principal; 2020-01-25 17:05)
DX: I21.02 ST elevation (STEMI) myocardial infarction involving left anterior descending coronary artery (principal); I50.20 Unspecified systolic (congestive) heart failure; I25.10 Atherosclerotic heart disease of native coronary artery without angina pectoris; Z72.0 Tobacco use; I25.5 Ischemic cardiomyopathy; Z86.19 Personal history of other infectious and parasitic diseases; D72.825 Bandemia
CPT/HCPCS: 36415; 71045; 80048; 80061; 83880; 84484; 85007; 85025; 85347; 85378; 85610; 85730; 86328; 92928; 92941; 93005; 93306; 93458; 96374; 96375; 99152; 99284; C1725; C1769; C1876; C9600; C9606; J1644; J2405; Q9967

== ENCOUNTER → 2020-04-25 10:19 | Outpatient (CLI) | payer OTHER, SELFPAY ==
--- NOTE | 2020-04-25 10:24 | CA_ITS ---
APPROVED REPORT EXAM: Comprehensive 2D, Doppler, and color-flow Echocardiogram Senior Accounting Clerk: Kelly Bey CRT Ht: 5 ft 9 in Wt: 171lbs BSA: 1.93 BP: 132/75 mmHg Indications: Congestive Heart Failure, CAD, Cardiomyopathy, stents, pt wore lifevest. 2D Dimensions LVOT 2.03 cm (M/F) 1.5-2.5 M-Mode Dimensions RVDd 1.52 cm (0.9-2.6) LA Diam 3.35 cm (1.9-4.0) LVDd 5.44 cm (3.5-5.7) Ao Diam 3.81 cm (2.0-3.7) LVDs 3.89 cm (3.5-5.7) IVSd 0.61 cm (0.6-1.1) PWd 0.58 cm (0.6-1.1) EF (Teich) 54.40% FS 28.50% EDV (Teich) 143.70 mL ESV (Teich) 65.50 mL LV Diastology E Decel Time 150.00 (160-240 msec) E/A Ratio 0.72 MED E' 8.00 (< 7 cm/sec) E'/MED E' Ratio 16.41 (>14) LAT E' 16.80 (<10 cm/sec) E/LAT E' Ratio 7.82 (>14) Aortic Valve AO Peak GR. 6.10 mmHg Mitral Valve MV E Max Greg. 131.00 (40-130 cm/s) MV A Velocity 182.00 (40-130 cm/s) E/A Ratio 0.72 MV Decel. Time 150.00 (160-240 ms) MV PHT 44.00 ms Pulmonary Valve PV Peak Velocity 54.00 (50-150 cm/s) Tricuspid Valve TR P. Velocity 159.00 cm/s Left Ventricle Left atrium is mildly enlarged, left ventricle is mildly dilated, visually estimated ejection fraction approximately 30%, there is marked hypokinesis involving the mid to distal septum, anterior, anterior apical and apical wall. Endocardial surfaces are poorly visualized, repeat study with Definity contrast is recommended if clinically indicated. Right Ventricle Right atrium and right ventricle are normal size and contractility. Aortic Valve Aortic valve is minimally thickened and fibrosed, there is no aortic stenosis or aortic insufficiency. Mitral Valve Mitral valve leaflets are grossly normal, there is mild mitral regurgitation. Tricuspid Valve Tricuspid valve is grossly normal, there is mild tricuspid regurgitation. Tricuspid regurgitation jet velocity is inadequate for calculation of the right ventricular systolic pressure. Pulmonic Valve Pulmonic valve is poorly visualized. Great Vessels Aortic root is normal size. Pericardium No significant pericardial effusion noted. Conclusion 1. Technically difficult study, repeat study with Definity contrast is recommended if clinically indicated. Mildly dilated left ventricle, visually estimated ejection fraction 30% with segmental wall motion abnormality described above, diastolic parameters are inconclusive. 2. Mild mitral and tricuspid regurgitation. 3. No significant pericardial effusion noted. Electronically signed by : Jasson Stauffer, 04/26/2020 06:12:51
== END ==
PROVIDERS: PCP Family Medicine; Visit Provider Nurse Practitioner Family
DX: I25.5 Ischemic cardiomyopathy (principal); I25.10 Atherosclerotic heart disease of native coronary artery without angina pectoris; I50.20 Unspecified systolic (congestive) heart failure; I51.9 Heart disease, unspecified; Z95.5 Presence of coronary angioplasty implant and graft
CPT/HCPCS: 93306

== ENCOUNTER 2025-04-12 22:14 | Inpatient (IN) | payer MEDICARE, SELFPAY ==
[2025-04-12] VITALS (10 sets, daily range): BP systolic 127–237; BP diastolic 83–151; PULSE 121–131; RESP 9–32; TEMP 35.7; O2SAT 97–100; BMI 26.9
--- NOTE | 2025-04-12 22:13 | ECG_ITS ---
APPROVED REPORT Exam: Resting ECG HR:57 bpm ECG Measurements Heart Rate 57 AXES QRSd 141 QRS -89 QT 536 T -80 QTc 530 Conclusion Acute STEMI, significant ST depressions in [address]ations in aVR, aVL and V2 Electronically signed by : Alethea Andrews, 04/14/2025 01:03:55
--- NOTE | 2025-04-12 22:15 | PC.NURSE ---
@2214 STEMI alert called @2214 [employer] team paged [phone] Received call back from [employer] [facility] team @2217 called dry house worker however, this initial call was missed due to providing critical patient care. @2225 [facility] returned call to . was notified that the [employer] team had been paged, pt condition (LDAs, recent vitals, etc.). estimated his time of arrival to be 15 mins and that he wanted to the patient on the analytical lab technician table. @2227 [facility] called [facility] to make sure staff had arrived to begin case and one 1 cdl team truck driver had arrived at this time. @2237 [facility] called [facility] to inform the staff the patient was ready to transport from the ER to [facility] and to ensure [facility] staff was ready. machinery repair maintenance supervisor was informed by [employer] [facility] team they were not ready and would call when they were ready for the patient to arrive @2241 called [facility] to inquire the location of the patient and that he was ready to begin the case. Following this call pt was promptly transported to [facility] with assistance of ER staff, respiratory staff and dry house worker.
--- NOTE | 2025-04-12 22:16 | PC.NURSE ---
Dr Andrews on the phone with Dr Ayala at this time.
[2025-04-12] MEDS: ETOMIDATE 40MG/20ML VIAL 20 MG IV (22:19)
[2025-04-12] MEDS: SUCCINYLCHOLINE 20MG/ML 10 ML MDV 100 MG IV (22:19)
--- NOTE | 2025-04-12 22:24 | XR_ITS ---
PROCEDURE INFORMATION: Exam: XR Chest Exam date and time: 04/12/2025 10:27 PM Age: 65 years old Clinical indication: Other: Post intubation TECHNIQUE: Imaging protocol: Radiologic exam of the chest. Views: 1 view. COMPARISON: CR XR CHEST PORTABLE 01/25/2020 3:56 PM FINDINGS: Tubes, catheters and devices: Enteric tube travels midline, appears subdiaphragmatic, although catheter tip is not within field of view. Endotracheal tube projects 4.5 cm from the adelia. Lungs: Basilar atelectasis and scarring. Pleural spaces: Unremarkable. No pleural effusion. No pneumothorax. Heart/Mediastinum: Hilar fullness. Mild cardiomegaly. Bones/joints: Unremarkable. Soft tissues: Resuscitation pads are seen over the chest. IMPRESSION: 1. Medical devices as above. 2. Findings suggest some degree of volume overload/pulmonary vascular congestion.
[2025-04-12] MEDS: HEPARIN SODIUM 5,000 UNIT/ML VIAL 9000 UNIT IV (22:27)
[2025-04-12] MEDS: ASPIRIN 81MG CHEWABLE TABLET 324 MG PO (22:29)
[2025-04-12 22:33] LABS: Hematocrit 38.9 % (42.0-52.0); Hemoglobin 12.7 g/dL (14.1-18.0); Immature Granulocytes % 2.1 %; Mean Corpuscular HGB Conc 32.6 g/dL (31.8-35.4); Mean Corpuscular Hemoglobin 32.6 pg (27.0-31.2); Mean Corpuscular Volume 99.7 fl (80-94); Nucleated Red Blood Cells % 0 %; Platelet Count 257 K/mm3 (142-424); Red Blood Count 3.90 M/mm3 (4.60-6.20); Red Cell Distribution Width-SD 49.3 fL; White Blood Count 14.5 K/mm3 (4.8-10.8)
--- NOTE | 2025-04-12 22:33 | IR_ITS ---
APPROVED REPORT Patient Location: Emergent PROCEDURES Left heart catheterization Left ventriculogram Selective coronary angiogram Mechanical thrombectomy to the proximal LAD Drug-eluting stent deployment to the proximal mid and distal LAD in a contiguous manner Right femoral arterial access Right retrograde femoral angiogram Placement of intra-aortic balloon pump INDICATION Acute anterior ST elevation myocardial infarction, Cardiogenic shock, Coronary artery disease, Informed consent was obtained prior to the procedure. COMPLICATIONS NONE Estimated Blood Loss: LESS THAN 10 ML TECHNIQUE One percent lidocaine used to anesthetize the right anterior aspect of the wrist. The right radial artery was accessed via the Seldinger technique. A 6 Chinese sheath was placed in the right radial artery. 2.5 mg of Verapamil, 800 mcg of nitroglycerin, 1mg Lidocaine were given through the arterial sheath. The JL3 catheter was also used to perform selective coronary angiography. A Choice PT extra-support wire was placed into the proximal LAD under fluoroscopic guidance. A mechanical penumbra catheter was advanced and thrombectomy was performed which did not restore RAMAN-3 flow. A 3 mm x 20 mm compliant balloon was deployed in the ostial proximal segment at 15 and 18 roland which restored RAMAN II flow. A 3 mm x 26 mm [place] frontier stent was deployed at 20 roland reducing the critical stenosis to 0%. An additional 2.5 x 38 mm [place] frontier stent was placed distal to the for stent yet still overlapping and deployed at 20 roland. The balloon was brought back and deployed at 24 roland to post dilate and match the stents. An additional 2 mm x 22 mm [place] frontier stent was deployed at 20 roland reducing the mid to distal stenosis. The balloon was brought back and deployed at 24 roland. RAMAN 0 flow was present at the beginning of the procedure with RAMAN-3 flow at the end of the procedure. Right coronary artery angiography followed followed by left heart catheterization and left ventriculogram. Following this the right femoral artery was accessed via the Salinger technique and a 5 Chinese sheath is placed in the right femoral artery. Retrograde angiography was performed to demonstrate patency of the femoral artery to make sure no peripheral artery disease was present. The 5 Chinese sheath was upsized to an 8 Chinese sheath and an intra-aortic balloon pump was placed under fluoroscopic guidance into the descending aorta. One-to-one balloon pump was started. Patient was experiencing what looks like general tonic-clonic seizures therefore 5 mg of Versed was administered intravenously followed by Versed drip of 4 mg/h. ANGIOGRAPHIC RESULTS The left main artery Patent The left anterior descending artery Ostially occluded. Following revascularization the proximal mid and distal segment was widely patent with RAMAN-3 flow distally The circumflex artery Widely patent with mid vessel 30% stenosis The right coronary artery Large and dominant widely patent with mild 10 to 20% luminal regularities The NEGRETE ventriculogram reveals Severely dilated globally hypokinetic ejection fraction 5 to 10% The left ventricular end-diastolic pressure 20 mmHg Right femoral artery is widely patent as is the common iliac artery into the distal abdominal aorta IMPRESSION Acute anterior ST elevation myocardial infarction Successful mechanical thrombectomy followed by drug-eluting stent deployment to the ostial proximal mid and distal LAD in a contiguous manner 100% occlusion reduced to 0% with 3 contiguous drug-eluting stents Cardiogenic shock Severely reduced ejection fraction Elevated LVEDP Successful placement of intra-aortic balloon pump Right femoral artery stick is above the profunda femoris artery and patient is eligible for Perclose device when the balloon pump is ready to be explanted PLAN 1. Supportive care 2. Consult critical care for ventilator management 3. As needed blood gases per critical care or per hospitalist 4. Brilinta 180 mg was given in the emergency department per NG tube. Continue 90 mg twice daily 5. Aspirin 81 mg daily 6. Check lactic acid 7. Repeat blood gas in 1 hour 8. Depending on patient's ongoing blood gas and response to intra-aortic balloon pump and based on the lactic acid consideration will be given to possibly transport patient to higher level care for consideration of Impella 5.0 9. Atorvastatin 80 mg per NG tube daily 10. No afterload reducing medicines or beta-blockers at this time 11. Echocardiogram in the morning 12. Heparin drip at 800 units/h have pharmacy monitor PTT while balloon pump is in place Electronically signed by : Cruzito Ayala MD 04/12/2025 23:44:38
[2025-04-12 22:37] LABS: Albumin Level 4.1 g/dl (3.5-5.0); Chloride 102 mmol/L (98-107); Potassium 3.4 mmoL/L (3.5-5.1); Sodium 138 mmol/L (136-145)
--- NOTE | 2025-04-12 22:37 | ED_ITS ---
Discharge Plan Disposition Patient Disposition: Admitted Condition: Critical Clinical Impressions Clinical Impression: ST elevation (STEMI) myocardial infarction, CAD (coronary artery disease), Elevated troponin, Acute hypoxic respiratory failure Discharge ED Provider: Alethea Andrews Adult HPI General Chief complaint: Arrhythmia/Palpitations Stated complaint: stemi Time Seen by Provider: 04/12/25 22:26 History of Present Illness HPI narrative: Patient is a 65-year-old male with a past medical history of coronary artery disease with 1 prior stent otherwise unknown past medical history who presented to the emergency department as a postcode. Per EMS, patient was sitting on the couch, his ex- went to the bathroom, when she came back he was gurgling speech. She called EMS at this time when she was on the phone with EMS, they advised her to feel her pulse. Patient states that she did not feel pulse therefore she initiated CPR. When EMS arrived, they did not feel a pulse, patient was placed on the pads and ACLS protocol was initiated. EMS stated that patient's initial rhythm was shockable, patient got shocked. Patient was then in PEA, patient was given a dose send of epinephrine. Patient received compressions a second shock and then ROSC was obtained. Patient's blood sugar was normal. LMA was in place. No other medications were given and route. Related Data Previous Rx's ?Medication ?Instructions ?Recorded aspirin 81 mg tablet,delayed 81 mg PO DAILY #30 tabs 1 04/30/19 release digoxin 125 mcg (0.125 mg) tablet 125 mcg PO DAILY #30 tabs 02/29/20 sacubitril 24 mg-valsartan 26 mg 1 tab PO BID #60 tabs 02/29/20 tablet clopidogrel 75 mg tablet (Plavix) 75 mg PO DAILY #90 t abs 03/09/20 metoprolol succinate 25 mg 25 mg PO DAILY #30 tabs tablet,extended release 24 hr atorvastatin 80 mg tablet See Rx Instructions .Route 1 04/24/20 .COMPLEX #30 tabs Allergies Allergy/AdvReac Type Severity Reaction Status Date / Time No Known Allergies Allergy Verified 04/27/20 13:08 [facility] Disclaimer: The information contained in this section may have been updated after the patient was seen, as this information can be updated by other users. Medical History (Updated 04/13/25 @ 01:07 by Alethea Andrews DO) NYHA class 3 heart failure with reduced ejection fraction CAD (coronary artery disease) Social History Smoking Status: Unknown if ever smoked alcohol intake: current alcohol intake frequency: a few times a month substance use type: marijuana current occupational status: employed Travel in the last 8 weeks?: Inside the [place] household members: spouse caffeine: Yes Have you lived/traveled outside [place] in past 30 days?: No Contact w/someone who lives/traveled outside US past 30 days?: No Exposure to someone with infectious disease in past 14 days?: No Do you have a fever (greater than 100.4 F or 38 C)?: No Have you tested positive for COVID-19?: No Exposed to someone with COVID-19 in past 14 days?: No Do you have a sore throat?: No Do you have a cough?: No Do you have any weakness?: No Do you have any diarrhea?: No Are you experiencing any unusual bleeding?: No Do you have any muscle aches/pain?: No Do you have any abdominal pain?: No Are you experiencing loss of taste or smell?: No Other Medical History Have you received the Flu Vaccine for this season: No Have you received the Pneumonia Vaccine: No ROS Obtained: Yes unobtainable due to mental status Physical Exam General General appearance: in distress Head Head exam: atraumatic Eye Eye exam: Present normal appearance ENT ENT exam: Present normal external ear exam Neck Neck exam: Present normal inspection Chest Chest inspection: Present normal inspection Respiratory Respiratory exam: Present normal lung sounds bilaterally Cardiovascular Cardiovascular exam: Present regular rate and bradycardia Abdominal Exam Abdominal exam: Present soft and distention Extremities Exam Extremities exam: Present normal inspection Neurological Exam Neurological exam: Present other (unconscious) Skin Skin exam: Present warm Medical Decision Making Medical Records Medical records reviewed: Yes I reviewed the patient's medical records. Screening: Per USPSTF and CDC recommendations, given the prevalence of disease in our region, it is our hospital?s policy to screen for HIV and viral Hepatitis for all patients aged 18 and over and those with ongoing risk factors. Cheng Inquiry Pt receiving controlled substance: No Vital Signs: 04/12/25 22:20 04/12/25 22:22 04/12/25 22:26 Temperature Pulse Rate 129 H 126 H 126 H Pulse Rate [Apical] Respiratory Rate 9 L 9 L 20 Blood Pressure 127/83 146/99 H 191/131 H Blood Pressure [Right Arm] Blood Pressure Mean [Right Arm] Blood Pressure Source [Right Arm] Blood Pressure Position [Right Arm] 02 Sat by Pulse Oximetry 99 99 97 Oxygen Delivery Method 04/12/25 22:30 04/12/25 22:30 04/12/25 22:32 Temperature 96.3 F L Pulse Rate 128 H 128 H Pulse Rate [Apical] Respiratory Rate 20 17 Blood Pressure 226/115 H 237/151 H Blood Pressure [Right Arm] Blood Pressure Mean [Right Arm] Blood Pressure Source [Right Arm] Blood Pressure Position [Right Arm] 02 Sat by Pulse Oximetry 97 97 Oxygen Delivery Method 04/12/25 22:34 04/12/25 22:35 04/12/25 22:37 Temperature Pulse Rate 121 H 131 H 131 H Pulse Rate [Apical] Respiratory Rate 16 20 26 H Blood Pressure 227/143 H 233/151 H 187/128 H Blood Pressure [Right Arm] Blood Pressure Mean [Right Arm] Blood Pressure Source [Right Arm] Blood Pressure Position [Right Arm] 02 Sat by Pulse Oximetry 97 97 97 Oxygen Delivery Method 04/13/25 00:14 Temperature Pulse Rate Pulse Rate [Apical] 91 H Respiratory Rate 11 L Blood Pressure Blood Pressure [Right Arm] 139/118 H Blood Pressure Mean [Right Arm] 125 Blood Pressure Source [Right Arm] Automatic Cuff Blood Pressure Position [Right Arm] Supine 02 Sat by Pulse Oximetry 99 Oxygen Delivery Method Mechanical Ventilation Ambu-Bag Lab Data Lab results reviewed: Yes I reviewed the patient's lab results. Lab Results 04/12/25 22:20: WBC 14.5 H, RBC 3.90 L, Hgb 12.7 L, Hct 38.9 L, MCV 99.7 H, MCH 32.6 H, MCHC 32.6, RDW 13.4, Plt Count 257, MPV 9.4, Neut % (Auto) 51.1, Lymph % (Auto) 40.5, Darke % (Auto) 5.7, Eos % (Auto) 0.3, Baso % (Auto) 0.3, Neut # (Auto) 7.4, Lymph # (Auto) 5.9 H, Darke # (Auto) 0.8, Eos # (Auto) 0.0, Baso # (Auto) 0.1, Total Counted 100, Neutrophils % (Manual) 53, Band Neutrophils % 1.0, Lymphocytes % (Manual) 42, Monocytes % (Manual) 3, Basophils % (Manual) 1.0, Platelet Estimate Normal, RBC Morphology Normal, Sodium 138, Potassium 3.4 L, Chloride 102, Carbon Dioxide 20 L, Anion Gap 19.4 H, BUN 20, Creatinine 1.60 H, Estimated GFR 43 L, Est GFR ( Amer) 52 L, Glucose 266 H, Calcium 8.9, Total Bilirubin 0.7, AST 212 H, ALT 201 H, Alkaline Phosphatase 72, Troponin I 2.69 H, Total Protein 6.7, Albumin 4.1, Globulin 2.6, Albumin/Globulin Ratio 1.6, Triglycerides 116, Cholesterol 190, LDL Cholesterol Direct 129.40 H, VLDL Cholesterol 23, HDL Cholesterol 49, Cholesterol/HDL Ratio 3.9 H 04/12/25 22:30: Urine Color Yellow, Urine Appearance Clear, Urine pH 6.0, Ur Specific Rodney >= 1.030, Urine Protein 2+ A, Urine Glucose (UA) Negative, Urine Ketones Trace, Urine Blood 2+ A, Urine Nitrate Negative, Urine Bilirubin Negative, Urine Urobilinogen 0.2, Ur Leukocyte Esterase Negative, Urine RBC 5- 10, Urine WBC 5-10, Ur Squamous Epith Cells None, Urine Bacteria 2+, Urine Sperm 3+ 04/12/25 22:41: VBG pH 6.97 L, VBG pCO2 70.2 H, VBG pO2 69.8 H, VBG HCO3 15.9 L, VBG Total CO2 18.0 L, VBG O2 Saturation 83.2 H, VBG Base Excess -15.9 L, VBG Lactic Acid 10.1 H 04/12/25 23:12: Specimen Source cath lab tech sample, O2 % 100, ABG pH 7.16 L*, ABG pCO2 33.7 L, ABG pO2 604.5 H, ABG HCO3 11.7 L, ABG Total CO2 12.8 L, ABG O2 Saturation 100, ABG Base Excess -16.9 L, Vent Rate 32, Tidal Volume 420, PEEP 5 04/12/25 22:20 04/12/25 22:20 Orders (Tests/Meds): ED MEDICATIONS Generic Name Dose Route Start Last Admin Trade Name Freq PRN Reason Stop Dose Admin Aspirin 81 mg 04/13/25 09:00 Aspirin Ec 81mg Tablet PO 05/13/25 08:59 DAILY SARA Diazepam 5 mg 04/12/25 22:33 Diazepam 5mg Tablet PO 04/13/25 10:33 ONCE PRN Anxiety Fentanyl Citrate 50 mcg 04/12/25 22:33 Fentanyl 100mcg/2ml Vial IV 04/13/25 10:33 Q3MINP PRN Sedation Fentanyl Citrate 25 mcg 04/12/25 22:33 Fentanyl 100mcg/2ml Vial IV 04/13/25 10:33 Q3MINP PRN Sedation Flumazenil 0.2 mg 04/12/25 22:33 Flumazenil 0.1mg/Ml 5ml Vial IV 04/13/25 10:33 NEEDED PRN Sedation Heparin Sodium (Porcine) 5,000 unit 04/12/25 22:33 Heparin 1,000 Units/Ml 10ml Vial ([employer]cher) IV 04/13/25 02:33 NEEDED PRN [employer] Hydralazine HCl 20 mg 04/12/25 22:33 Hydralazine 20mg/Ml Vial IV 04/13/25 02:33 ONCE PRN sbp>160 Sodium Chloride 1,000 mls @ 25 mls/hr 04/12/25 22:30 04/13/25 00:01 Sod Chlor 0.9% 1000ml Bag IV 05/12/25 22:29 Infused .Q25H SARA Infusion Adenosine 180 mg/ Sodium 90 mls @ 486 mls/hr 04/12/25 22:33 Chloride IV 04/13/25 02:33 ONCE PRN fractional flow reserve 180 MCG/KG/MIN Adenosine 90 mg/ Sodium 90 mls @ 972 mls/hr 04/12/25 22:33 Chloride IV 04/13/25 02:33 ONCE PRN fractional flow reserve 180 MCG/KG/MIN Sodium Chloride 500 mls @ 25 mls/hr 04/12/25 22:45 04/12/25 23:42 Sod Chloride 0.9% 500ml Bag IV 04/13/25 22:33 25 mls/hr .Q20H SARA Administration Propofol 100 mls @ 10.8 mls/hr 04/12/25 23:21 04/13/25 00:11 Diprivan 10mg/Ml 100ml Bottle IV 05/12/25 23:20 20 mcg/kg/min .Q9H16M SARA 10.8 mls/hr Protocol Administration 20 MCG/KG/MIN Heparin Sodium/Dextrose 500 mls @ 16 mls/hr 04/12/25 23:45 04/12/25 23:48 Heparin 25,000 Units In D5w 500ml Premix IV 05/12/25 23:44 800 units/hr .Q25H SARA 16 mls/hr 800 UNITS/HR Administration Midazolam HCl 50 mg/ Sodium 50 mls @ 1.8 mls/hr 04/12/25 23:45 04/12/25 23:50 Chloride IV 05/12/25 23:44 0.02 mg/kg/hr .Q24H SARA 1.8 mls/hr Protocol Administration 0.02 MG/KG/HR Epinephrine HCl 5 mg/ Sodium 255 mls @ 6.12 mls/hr 04/12/25 23:45 04/13/25 00:05 Chloride IV 05/12/25 23:44 2 mcg/min .Q24H SARA 6.12 mls/hr Protocol Administration 2 MCG/MIN Labetalol HCl 20 mg 04/12/25 22:33 Labetalol 20mg/4ml Syringe IV 04/13/25 02:33 ONCE PRN sbp>160 Lorazepam 1 mg 04/12/25 22:33 Lorazepam 2mg/Ml Vial IV 04/13/25 10:33 ONCE PRN Anxiety Midazolam HCl 1 mg 04/12/25 22:33 Midazolam 2mg/2ml Vial IV 04/13/25 10:33 Q3MINP PRN Sedation Midazolam HCl 1 mg 04/12/25 22:33 04/12/25 23:42 Midazolam Hcl 1mg/Ml 5ml Vial IV 04/13/25 10:33 5 mg Q3MINP PRN Administration Sedation Miscellaneous 1 each 04/12/25 23:45 Heparin Drip Consult NOTAPPLIC 05/12/25 23:44 CONSULT PHARMACY [facility] Miscellaneous 1 each 04/13/25 00:45 Consider Pt For Dual Antiplatelet Therapy At Discharge-Stent NOTAPPLIC 05/13/25 00:44 NEEDED PRN Reminder for s/p stent Naloxone HCl 0.4 mg 04/12/25 22:33 Naloxone 0.4mg/Ml Vial IV 04/13/25 10:33 Q5MINP PRN Decreased Respirations Nitroglycerin 800 mcg 04/12/25 22:33 04/12/25 23:42 Nitroglycerin 800mcg/8ml Syr ([employer]) IA 04/13/25 02:33 800 mcg NEEDED PRN Administration [employer] Nitroglycerin 0.4 mg 04/13/25 00:45 Nitroglycerin 0.4mg Sl Tablet SL 05/13/25 00:44 Q5MINP PRN Chest Pain Ondansetron HCl 4 mg 04/12/25 22:33 Ondansetron 4mg/2ml Vial IV 04/13/25 10:33 NEEDED PRN Nausea Promethazine HCl 25 mg 04/12/25 22:33 Promethazine Hcl 25mg/Ml 1ml Vial IV 04/13/25 10:33 NEEDED PRN Nausea And Vomiting Protamine Sulfate 50 mg 04/12/25 22:33 Protamine Sulfate 50mg/5ml Vial ([employer]cher) IV 04/13/25 02:33 ONCE PRN act>200 Sodium Chloride 10 ml 04/12/25 22:24 Sodium Chloride 0.9% 10ml Flush Syringe IV 05/12/25 22:23 NEEDED PRN Maintain IV Site Sodium Chloride 10 ml 04/12/25 22:33 Sodium Chloride 0.9% 10ml Vial IV 05/12/25 22:32 NEEDED PRN to Dilute Lorazepam inj Ticagrelor 90 mg 04/13/25 09:00 Ticagrelor 90mg Tablet PO 05/13/25 08:59 BID SARA Discontinued Medications Generic Name Dose Route Start Last Admin Trade Name Dmitriq PRN Reason Stop Dose Admin Aspirin 324 mg 04/12/25 22:24 04/12/25 22:29 Aspirin 81mg Chewable Tablet PO 04/12/25 22:25 324 mg ONCE ONE Administration Diphenhydramine HCl 50 mg 04/12/25 22:33 04/13/25 00:00 Diphenhydramine 50mg/Ml Vial IV 04/12/25 22:34 Not Given ONCE ONE Etomidate 20 mg 04/12/25 23:20 04/12/25 22:19 Etomidate 40mg/20ml Vial IV 04/12/25 23:21 20 mg ONCE ONE Administration Heparin Sodium (Porcine) 9,000 unit 04/12/25 22:30 04/12/25 22:27 Heparin Sodium 5,000 Unit/Ml Vial IV 04/12/25 22:31 9,000 unit ONCE ONE Administration Heparin Sodium/Sodium Chloride 3,000 unit 04/12/25 22:33 04/12/25 23:42 Heparin 1,000 Units/500ml Ns ([employer]cher) IV 04/12/25 22:34 3,000 unit ONCE ONE Administration Iohexol 115 ml 04/13/25 00:00 04/13/25 00:03 Iohexol-240 100ml Bottle IV 04/13/25 00:01 115 ml ONCE ONE Administration Lidocaine HCl 10 ml 04/12/25 22:33 04/12/25 23:42 Lidocaine 1% 10ml Mdv IJ 04/12/25 22:34 10 ml ONCE ONE Administration Lidocaine HCl 10 ml 04/12/25 22:33 04/13/25 00:00 Lidocaine 1% 5ml Pf Vial IJ 04/12/25 22:34 Not Given ONCE ONE Morphine Sulfate 4 mg 04/12/25 22:33 04/13/25 00:00 Morphine 4mg/Ml Syringe IV 04/12/25 22:34 Not Given ONCE ONE Nitroglycerin 0.4 mg 04/12/25 22:24 Nitroglycerin 0.4mg Sl Tablet SL 04/13/25 00:24 Q5MINP PRN Chest Pain Sodium Chloride 25 ml 04/12/25 22:33 Sodium Chloride 0.9% 25ml Bag IV 04/12/25 22:34 ONCE ONE Succinylcholine Chloride 100 mg 04/12/25 23:20 04/12/25 22:19 Succinylcholine 20mg/Ml 10 Ml Mdv IV 04/12/25 23:21 100 mg ONCE ONE Administration Ticagrelor 180 mg 04/12/25 22:20 04/12/25 22:27 Ticagrelor 90mg Tablet PO 04/12/25 22:21 180 mg ONCE ONE Administration Verapamil HCl 2.5 mg 04/12/25 22:33 04/12/25 23:42 Verapamil 2.5mg/Ml 2ml Vial IV 04/12/25 22:34 2.5 mg ONCE ONE Administration ORDERS Category Date Time Status Consult to Cardiology [CONS] Stat Cons 04/12/25 22:24 Active XR chest portable Stat Exams 04/12/25 22:24 Completed Complete Blood Count Auto Diff Stat Lab 04/12/25 22:20 Completed Comprehensive Metabolic Panel Stat Lab 04/12/25 22:20 Completed Lipid Panel Stat Lab 04/12/25 22:20 Completed Troponin I Q3H Lab 04/13/25 01:30 Ordered Troponin I Q3H Lab 04/13/25 04:30 Ordered Troponin I Stat Lab 04/12/25 22:20 Completed Urinalysis and Microscopic Stat Lab 04/12/25 22:30 Completed Urine Culture Stat Micro 04/12/25 22:30 Received Arterial Blood Gas Routine RT 04/12/25 23:12 Results Venous Blood Gas Routine RT 04/12/25 22:41 Completed Medical Decision Narrative: Patient is a 65-year-old gentleman who arrived to the emergency department as a postcode. Per EMS, patient's ex- went to the bathroom and found patient with gurgling speech on the couch felt for pulse which was not present she initiated CPR. ACLS protocol was continued on their arrival. Patient received 2 shocks reviewed received round of compressions as well as 1 dose of epinephrine. Patient's blood sugar was normal. On arrival in the emergency department, patient had a palpable femoral pulse. Patient had an LMA in place, with appropriate ventilation and capnography. Patient was placed on the monitor, patient had a hypertensive blood pressure, patient had appropriate capnography with an appropriate post to saturation. Patient was moved from the EMS stretcher immediately to our ER bed. Patient was placed on the pads attached to the monitor EKG was immediately obtained. Patient's EKG showed concerns for STEMI with significant depressions in [address] elevations in aVL, aVR as well as V2. The [employer]cher was activated at 2214. Cardiology was then called, and at 2217, he agreed with the STEMI and agreed with activating the phlebotomy lab assistant. Patient was given 1/kg of heparin as well as 180 of brillenta. Patient was then intubated with 20 of etomidate and 100 of succinylcholine. Patient had appropriate breath sounds bilaterally. Chest x-ray was obtained to confirm ET tube placement which appeared to be high therefore patient's ET tube was advanced 2 cm. Chest x-ray was obtained which showed appropriate position of the ET tube. NG was placed to administer Brilinta. Patient was placed on propofol for post intubation sedation. Patient was placed on IV fluids. Patient's blood pressures continued to be hypertensive therefore patient did not require any vasopressors at this time. Dunbar catheter was placed. Patient did not have any other evidence of trauma therefore further workup was not felt to be indicated at this time. [employer] labs were ordered and sent. VBG obtained and resulted just prior to leaving which showed hypercapnia, elvated lactate and significant acidosis. Patient left for [employer]cher at 1042. Alethea Andrews, DO Procedures Intubation Mallampati Score:: Class I Time out performed: Yes sedative: Etomidate Mg Given: 20 paralytic: Succinylcholine Mg Given: 100 Laryngoscope: Avni ET Tube Size: 7.5 ET Tube Uncuffed: No Tube Secured Depth (cm): 22 Tube Secured Location: lips Tube Placement Confirmation: visualized tube passing through cords Patient Tolerated Procedure: well Intubation Complications: none Critical Care Critical Care Time Critical Care Time: Yes Attestation: On 04/12/25, the high probability of a clinically significant, sudden or life threatening deterioration of the following system(s) required my full and direct attention, intervention and personal management. The time I documented below is in addition to time spent performing reported procedures but includes the following listed in this critical care notation. Total Time Total Critical Care Time: 33
[2025-04-12 22:40] LABS: Alanine Aminotransferase 201 U/L (12-78); Albumin/Globulin Ratio 1.6 (1.1-1.8); Alkaline Phosphatase 72 U/L (38-126); Anion Gap 19.4 mEq/L (5-15); Aspartate Amino Transferase 212 U/L (17-59); Bilirubin,Total 0.7 mg/dl (0.2-1.3); Blood Urea Nitrogen 20 mg/dl (9-20); Calcium 8.9 mg/dl (8.4-10.2); Carbon Dioxide 20 mmol/L (22.0-30.0); Cholesterol 190 mg/dl (140-200); Creatinine,Serum 1.60 mg/dl (0.66-1.25); Estimated Glomerular Filt Rate 43 ml/min (>60); GFR (African American) 52 ML/MIN (>60); Globulin 2.6 g/dL (1.3-3.2); Glucose 266 mg/dl (74-100); Total Protein,Serum 6.7 g/dl (6.3-8.2); Triglycerides 116 mg/dl (30-150)
[2025-04-12 22:41] LABS: HDL Cholesterol 49 mg/dl (40-60)
--- NOTE | 2025-04-12 22:41 | ECG_ITS ---
APPROVED REPORT Exam: Resting ECG HR:127 bpm ECG Measurements Heart Rate 127 AXES QRSd 114 QRS 269 QT 297 T 88 QTc 372 Conclusion Acute STEMI, significant depressions in 2 3 aVF with elevations in aVR aVL and V2 Electronically signed by : Alethea Andrews, 04/14/2025 01:04:20
[2025-04-12 22:43] LABS: VBG HCO3 15.9 mmol/L (23-30); VBG PCO2 70.2 mmol/L (35-51); VBG PH 6.97 mmol/L (7.31-7.41); VBG PO2 69.8 mmol/L (28-40)
[2025-04-12 22:44] LABS: Lactate Venous 10.1 mmol/L (0.4-2.0)
[2025-04-12 22:55] LABS: Troponin I 2.69 ng/ml (0.00-0.034)
--- NOTE | 2025-04-12 22:57 | PC.NURSE ---
critical troponin 2.69 verified with this Rn and lab, MD Alethea Andrews notified at this time.
[2025-04-12 23:13] LABS: ABG HCO3 11.7 mmhg (22.0-26.0); ABG PCO2 33.7 mmhg (35.0-45.0); ABG PO2 604.5 mmhg (80-100); ABG TCO2 12.8 mmhg (23-27)
--- NOTE | 2025-04-12 23:21 | PC.NURSE ---
INTUBATION/STEMI ALERT NOTE: 2208- Pt arrived to ED via EMS following cardiac arrest. EMS reports pt has a cardiac history. EMS states per , Pt started feeling bad last night. Tonight, Pt was snoring on the couch. believed pt to be sleeping. She went outside, and when she came back inside, pt had gurgling breath sounds, checked pulse and pt was found to be pulseless. immediately started CPR (@2132) and called 911. Per EMS, fire department arrived @2133 and administered narcan with no results. EMS arrived on scene @ 2138 and found pt to be pulseless in V-fib. Pt was shocked a total of 2 times and got epi 1mg 3 times. Last epi was given @2148 and last defib was @2200. FS per EMS was 222. Upon pts arrival, pt had 18G IV in LAC and was being ventilated per ambu-bag/Air-Q. See VS. 2212- EKG obtained. 2213- STEMI alert called per Dr. Andrews. 2218 RSI meds. see MAR. FS 239 2220 18G IV placed to TYSON [address] Andrews. 7.5 ETT, 20cm at lip. color change noted with bilateral breath sounds. Propofol started @[address] Andrews. 2226- 14 Fr OG placed. 65 cm. left nare. 2228- xray at bedside. 2230-20G IV placed to LFA. 16Fr temp sensing fernandez placed 2233 ETT advanced to 22cm per Dr Andrews by RT. 2236 NS started @[address] Andrews. 2242- Pt left ED to go to optical laboratory mechanic.
[2025-04-12 23:24] LABS: Total Cells Counted 100
[2025-04-12 23:25] LABS: RBC Morphology Normal
[2025-04-12 23:39] LABS: Microscopic, Urine URINE MICROSCOPIC (MICROSCOPIC)
[2025-04-12 23:41] LABS: Bilirubin,Urine Negative (Negative); Color,Urine YELLOW (Yellow); Glucose,Urine (UA) Negative (Negative); Ketones,Urine TRACE (Negative); Leukocyte Esterase,Urine Negative (Negative); PH,Urine 6.0 (5.0-8.5); Protein,Urine 2+ (Negative); Specific Gravity, Urine >= 1.030 (1.005-1.030); Urobilinogen,Urine 0.2 EU/dl (0.2)
[2025-04-12] MEDS: NITROGLYCERIN 800MCG/8ML SYR (CATH LAB) 800 MCG IA (23:42)
[2025-04-12] MEDS: HEPARIN 1,000 UNITS/500ML NS (CATH LAB) 3000 UNIT IV (23:42)
[2025-04-12] MEDS: 0.9 % SODIUM CHLORIDE 500 ML 25 ML IV (23:42)
[2025-04-12] MEDS: LIDOCAINE 1% 10ML MDV 10 ML IJ (23:42)
[2025-04-12] MEDS: VERAPAMIL 2.5MG/ML 2ML VIAL 2.5 MG IV (23:42)
[2025-04-12] MEDS: MIDAZOLAM HCL 1MG/ML 5ML VIAL 1 MG IV (23:42)
[2025-04-12] MEDS: 0.9 % SODIUM CHLORIDE 1000ML 1,000 ML 999 ML IV (23:43)
[2025-04-12 23:46] LABS: ABG PH 7.16 mmol/L (7.35-7.45); PEEP 5
[2025-04-12] MEDS: HEPARIN SODIUM,PORCINE/D5W 500 ML 16 UNIT IV (23:48)
[2025-04-12] MEDS: MIDAZOLAM HCL/PF 50 MG in 0.9 % SODIUM CHLORIDE 40 ML IV (23:50)
[2025-04-13] VITALS (22 sets, daily range): BP systolic 73–139; BP diastolic 43–118; PULSE 70–218; RESP 11–29; TEMP 34.7–36.5; O2SAT 99–100; BMI 26.9
[2025-04-13] MEDS: IOHEXOL-240 100ML BOTTLE 115 ML IV (00:03)
[2025-04-13] MEDS: EPINEPHrine 5 MG in 0.9 % SODIUM CHLORIDE 250 ML 6.12 MG IV (00:05)
[2025-04-13 00:06] LABS: CATHL Activated Clotting Time > 400 SEC (74-125)
[2025-04-13 00:09] LABS: Bacteria,Urine 2+ /lpf; Sperm,Urine 3+ /lpf
--- NOTE | 2025-04-13 00:24 | PC.NURSE ---
Patient arrived to floor via stretcher from Resident Assistant [facility] at 00:23.
[2025-04-13 01:00] LABS: ABG HCO3 16.4 mmhg (22.0-26.0); ABG PCO2 28.3 mmhg (35.0-45.0); ABG PH 7.38 mmol/L (7.35-7.45); ABG PO2 256.7 mmhg (80-100); ABG TCO2 17.3 mmhg (23-27)
[2025-04-13 01:07] LABS: PEEP 5; Source Right Femoral
[2025-04-13 01:09] LABS: Lactate Arterial 6.3 mmol/L (0.4-2.0)
[2025-04-13] MEDS: HEPARIN DRIP CONSULT 1 EACH NOTAPPLIC (01:30)
[2025-04-13 01:35] LABS: PTT Heparin (inpatient only) 161.7 Seconds (50-75)
--- NOTE | 2025-04-13 01:40 | P.HP_ITS ---
<Statement entered by Benja Frye MD - 04/13/25 09:49> Patient by the time of my evaluation. Discussed case at length with nurse practitioner, agree with findings, plan, interventions as documented. History of Present Illness *Admission Date: 04/13/25 *Reason for visit:: Cardiac arrest *History of present illness: Gasper Quinones is a 65-year-old male with a PMH significant for CAD, HLD, systolic CHF, s/p coronary artery stent placement. Presents to [facility] status post cardiac arrest. Patient was found down per his ex- who noted patient was gurgling. EMS was notified in which they advised that she check for a pulse which was not present. CPR was advised and was initiated per ex-. Upon arrival per EMS they noted a pulse was not present on their arrival ACLS protocol initiated. Initial rhythm was shockable in which 1 shock was delivered. Patient was noted to be PEA 1 dose of epinephrine received. Patient received compressions and a second shock with ROSC obtained. On arrival to the ED patient had a palpable femoral pulse. LMA was in place. EKG obtained which was concerning for STEMI showing significant depressions in [address] elevations in aVL, aVR, V2. [employer] Intelligence Officer Chief was notified per ED provi eduardo. Cardiology was then notified and agreed with STEMI and activating the [employer] Intelligence Officer Chief. Patient received 1 kg of heparin and 180 of Brilinta. Intubated in the emergency department and emergently transferred to the [employer] Intelligence Officer Chief. Remaining significant ED workup included laboratory studies and imaging. Laboratory finding included WBC 14.5. VBG pH is 7.16, CO2 12.8, lactic acid 10.1. Potassium 3.4, creatinine 1.60, GFR 43, AST 212, ALT 201, troponin 2.69, LDL 129, UA with 2+ protein, 2+ blood, 5-10 WBC and 2+ bacteria no squamous cells present. Chest x-ray which I personally reviewed showing volume overload/pulmonary vascular congestion. s/p intubation ED emergently transferred to [facility] at 2242. [facility] Disclaimer: The information contained in this section may have been updated after the patient was seen, as this information can be updated by other users. Medical History NYHA class 3 heart failure with reduced ejection fraction CAD (coronary artery disease) Social History Smoking Status: Unknown if ever smoked alcohol intake: current alcohol intake frequency: a few times a month substance use type: marijuana current occupational status: employed Travel in the last 8 weeks?: Inside the [place] household members: spouse caffeine: Yes Have you lived/traveled outside US in past 30 days?: No Contact w/someone who lives/traveled outside US past 30 days?: No Exposure to someone with infectious disease in past 14 days?: No Do you have a fever (greater than 100.4 F or 38 C)?: No Have you tested positive for COVID-19?: No Exposed to someone with COVID-19 in past 14 days?: No Do you have a sore throat?: No Do you have a cough?: No Do you have any weakness?: No Do you have any diarrhea?: No Are you experiencing any unusual bleeding?: No Do you have any muscle aches/pain?: No Do you have any abdominal pain?: No Are you experiencing loss of taste or smell?: No Other Medical History Have you received the Flu Vaccine for this season: No Have you received the Pneumonia Vaccine: No Review of Systems Review of Systems Review of systems:: unable to obtain Constitutional Constitutional: Reports as per HPI Eyes Eyes: Reports as per HPI ENT Ears, Nose, Mouth, and Throat: Reports as per HPI *Cardiovascular Cardiovascular: Reports as per HPI *Respiratory Respiratory: Reports as per HPI *Gastrointestinal Gastrointestinal: Reports as per HPI *Genitourinary Genitourinary: Reports as per HPI *Musculoskeletal Musculoskeletal: Reports as per HPI Integumentary/Breasts Skin/Breast: Reports as per HPI *Neurologic Neurologic: Reports as per HPI Psychiatric Psychiatric: Reports as per HPI Endocrine Endocrine: Reports as per HPI Hematologic/Lymphatic Hematologic/Lymphatic: Reports as per HPI Allergic/Immunologic Allergic/Immunologic: Reports as per HPI Meds Home Medications and Allergies Home Medications ?Medication ?Instructions ?Recorded ?Confirmed ?Type aspirin 81 mg tablet,delayed 81 mg PO DAILY #30 tabs 1 04/30/19 03/09/20 Rx release digoxin 125 mcg (0.125 mg) tablet 125 mcg PO DAILY #30 tabs 02/29/20 03/09/20 Rx sacubitril 24 mg-valsartan 26 mg 1 tab PO BID #60 tabs 02/29/20 03/09/20 Rx tablet clopidogrel 75 mg tablet (Plavix) 75 mg PO DAILY #90 t abs 03/09/20 03/09/20 Rx metoprolol succinate 25 mg 25 mg PO DAILY #30 tabs 04/06/20 Rx tablet,extended release 24 hr atorvastatin 80 mg tablet See Rx Instructions .Route 1 04/24/20 Rx .COMPLEX #30 tabs New Prescriptions to Start Prescriptions: Allergies Allergy/AdvReac Type Severity Reaction Status Date / Time No Known Allergies Allergy Verified 04/27/20 13:08 Exam Data for Last 24 hours Vital signs and Labs for Last 24 Hours: Temp Pulse Resp BP Pulse Ox O2 Del Method 96.3 F L 91 H 11 L 139/118 H 99 Mechanical Ventilation, Ambu-Bag 04/12/25 22:30 04/13/25 00:14 04/13/25 00:14 04/13/25 00:14 04/13/25 00:14 04/13/25 00:14 Laboratory Results - last 24 hr 04/12/25 22:20: WBC 14.5 H, RBC 3.90 L, Hgb 12.7 L, Hct 38.9 L, MCV 99.7 H, MCH 32.6 H, MCHC 32.6, RDW 13.4, Plt Count 257, MPV 9.4, Neut % (Auto) 51.1, Lymph % (Auto) 40.5, Porter % (Auto) 5.7, Eos % (Auto) 0.3, Baso % (Auto) 0.3, Neut # (Auto) 7.4, Lymph # (Auto) 5.9 H, Porter # (Auto) 0.8, Eos # (Auto) 0.0, Baso # (Auto) 0.1, Total Counted 100, Neutrophils % (Manual) 53, Band Neutrophils % 1.0, Lymphocytes % (Manual) 42, Monocytes % (Manual) 3, Basophils % (Manual) 1.0, Platelet Estimate Normal, RBC Morphology Normal, Sodium 138, Potassium 3.4 L, Chloride 102, Carbon Dioxide 20 L, Anion Gap 19.4 H, BUN 20, Creatinine 1.60 H, Estimated GFR 43 L, Est GFR ( Amer) 52 L, Glucose 266 H, Calcium 8.9, Total Bilirubin 0.7, AST 212 H, ALT 201 H, Alkaline Phosphatase 72, Troponin I 2.69 H, Total Protein 6.7, Albumin 4.1, Globulin 2.6, Albumin/Globulin Ratio 1.6, Triglycerides 116, Cholesterol 190, LDL Cholesterol Direct 129.40 H, VLDL Cholesterol 23, HDL Cholesterol 49, Cholesterol/HDL Ratio 3.9 H 04/12/25 22:30: Urine Color Yellow, Urine Appearance Clear, Urine pH 6.0, Ur Specific [place] >= 1.030, Urine Protein 2+ A, Urine Glucose (UA) Negative, Urine Ketones Trace, Urine Blood 2+ A, Urine Nitrate Negative, Urine Bilirubin Negative, Urine Urobilinogen 0.2, Ur Leukocyte Esterase Negative, Urine RBC 5- 10, Urine WBC 5-10, Ur Squamous Epith Cells None, Urine Bacteria 2+, Urine Sperm 3+ 04/12/25 22:41: VBG pH 6.97 L, VBG pCO2 70.2 H, VBG pO2 69.8 H, VBG HCO3 15.9 L, VBG Total CO2 18.0 L, VBG O2 Saturation 83.2 H, VBG Base Excess -15.9 L, VBG Lactic Acid 10.1 H 04/12/25 23:12: Specimen Source sleep lab technologist sample, O2 % 100, ABG pH 7.16 L*, ABG pCO2 33.7 L, ABG pO2 604.5 H, ABG HCO3 11.7 L, ABG Total CO2 12.8 L, ABG O2 Saturation 100, ABG Base Excess -16.9 L, Vent Rate 32, Tidal Volume 420, PEEP 5 04/13/25 00:11: Activated Clotting Time > 400 H* 04/13/25 00:53: APTT 161.7 H*, Specimen Source Right femoral, O2 % 100, ABG pH 7.38, ABG pCO2 28.3 L, ABG pO2 256.7 H, ABG HCO3 16.4 L, ABG Total CO2 17.3 L, ABG O2 Saturation 100, ABG Base Excess -8.7 L, Rafa Test Non applicable, ABG Lactate 6.3 H, Vent Rate 28, Tidal Volume 420, PEEP 5 I & O for Last 24 hours: Intake & Output 04/10/25 04/11/25 04/12/25 04/13/25 23:59 23:59 23:59 23:59 Intake Total 1509.588 / 1509.588 Balance 1509.588 / 1509.588 Weight 90 kg 90 kg Constitutional Constitutional: chronically ill appearing Comments: Sedated/intubated *Routine HEENT Exam Head: Present normocephalic and atraumatic Eye: Present other (Pupils fixed ) ENT: Present mucous membranes dry *Routine Neck Exam Neck: Present supple and full ROM *Routine Respiratory Exam Respiratory: Present patient mechanically ventilated *Routine Cardiovascular Exam Cardiovascular: Present Normal S1 and Normal S2 *Routine Abdominal Exam Abdominal: Present soft and normoactive bowel sounds *Routine Rectal Exam Rectal:: deferred *Routine Genitalia Exam Genitalia:: deferred *Routine Extremities Exam Extremities: Present pulses intact and normal capillary refill *Routine Skin Exam Skin: Present intact *Routine Neurological Exam Comments: Intubated and sedated on vent Detailed Cardiovascular Exam Comments: s/p balloon pump Assessment and Plan *Assessment and plan (1) ST elevation (STEMI) myocardial infarction: Status: Acute Qualifiers: Involved coronary artery: unspecified coronary artery Qualified Code(s): I21.3 - ST elevation (STEMI) myocardial infarction of unspecified site Category: Medical Code(s): I21.3 - ST elevation (STEMI) myocardial infarction of unspecified site (2) Cardiac arrest: Status: Acute Category: Medical Code(s): I46.9 - Cardiac arrest, cause unspecified (3) Acute hypoxic respiratory failure: Status: Acute Category: Medical Code(s): J96.01 - Acute respiratory failure with hypoxia (4) MARY ELLEN (acute kidney injury): Status: Acute Category: Medical Code(s): N17.9 - Acute kidney failure, unspecified (5) Hypokalemia: Status: Acute Category: Medical Code(s): E87.6 - Hypokalemia (6) Leukocytosis: Status: Acute Qualifiers: Leukocytosis type: bandemia Qualified Code(s): D72.825 - Bandemia Category: Medical Code(s): D72.829 - Elevated white blood cell count, unspecified (7) Suspected UTI: Status: Acute Category: Medical Code(s): R39.89 - Other symptoms and signs involving the genitourinary system (8) Pulmonary edema due to fluid overload: Status: Acute Category: Medical Code(s): J81.1 - Chronic pulmonary edema (9) Systolic CHF: Status: Chronic Qualifiers: Heart failure chronicity: chronic Qualified Code(s): I50.22 - Chronic systolic (congestive) heart failure Category: Medical Code(s): I50.20 - Unspecified systolic (congestive) heart failure (10) HLD (hyperlipidemia): Status: Chronic Qualifiers: Hyperlipidemia type: mixed hyperlipidemia Qualified Code(s): E78.2 - Mixed hyperlipidemia Category: Medical Code(s): E78.5 - Hyperlipidemia, unspecified (11) CAD (coronary artery disease): Status: Chronic Qualifiers: Associated angina: without angina Coronary Disease-Associated Artery/Lesion type: [place] artery [place] vs. transplanted heart: [place] heart Qualified Code(s): I25.10 - Atherosclerotic heart disease of [place] coronary artery without angina pectoris Category: Medical Code(s): I25.10 - Atherosclerotic heart disease of [place] coronary artery without angina pectoris (12) Cardiogenic shock: Problem Comment: present on admission Status: Acute Category: Medical Code(s): R57.0 - Cardiogenic shock Plan Assessment/plan: Patient case discussed with ED provider, Dr. Andrews for hospital admission. Patient is a 65-year-old male, presented status postcode per EMS. Workup within the emergency department revealed EKG showing STEMI. ED provider discussed with cardiology who agreed with finding and alerted Aoc Plans Intelligence Officer Chief. Patient intubated in the emergency department and emergently transferred to the A[employer] Plans Intelligence Officer Chief. Stents placed to LAD, balloon pump in place. Stable upon transfer to ICU. Resume Heparin drip, Versed drip and propofol drip. Routine A[employer] Plans Intelligence Officer Chief orders including VBG. Consult placed to technical services representative, trend monitor labs closely. 1. STEMI/cardiac arrest/acute hypoxic respiratory failure: Patient was found down per his ex- earlier in the evening, unresponsive and gurgling. EMS notified, recommended CPR. EMS on arrival noted no pulse, ACLS initiated, patient received 2 shocks and a round of compressions including 1 dose of epinephrine. Pulse present on arrival to the ED. Twelve-lead obtained showing STEMI with significant depressions in [address] elevations in aVL, aVR and V2. Cardiology notified per ED who agreed with findings, Aoc Plans Intelligence Officer Chief activated. Patient intubated within the emergency department transferred to the Aoc Plans Intelligence Officer Chief. Stent placement to LAD, balloon pump present. Transferred from Aoc Plans Intelligence Officer Chief to ICU stable. Intubated and sedated. Heparin drip, Versed and propofol. Vitals stable on arrival to ICU from sleep lab technologist. Pupils fixed. Intermittent jerking present, suspect post-hypoxic myoclonus. High risk for decompensation. Code status discussed with family. Daughter next of kin, resides in [place]. I di scussed at length current status and recent events. Noted she has been estranged for the past 2 years and would like patient's brothers (family present) to make decisions regarding care goals moving forward. Shortly after discussion patient went into V. tach, pulseless. ACLS protocol initiated-> ROSC obtained. Discussion with family regaurding code status, requested to resume Full code for now, but will likely change to DNR if pt. CODES again. Continuous cardiac/O2 monitoring, maintain oxygen sats greater than 92%. Pulmonary hygiene. Monitoring labs closely. Consult placed to technical services representative. 2. MARY ELLEN: Initial creatinine on arrival with ED workup noted to be 1.60, per chart review prior creatinine 0.7?0.9-> suspect s/p cardiac arrest after AKA status. Noted underlying pulmonary edema/hypervolemia per imaging. Due to findings will continue to monitor trend with morning labs. Avoid nephrotoxic medication. 3. Hypokalemia: Potassium 3.4 per ED workup. Replete as needed, continue to monitor, will obtain magnesium level. 4. Leukocytosis/urinary tract infection: Mild elevation in WBC 14, suspect multifactorial in nature. Status postcardiac arrest along with suspected urinary tract infection. Bacteria present with WBC, without squamous cell present. Urine culture obtained and pending will follow. 5. Pulmonary edema/systolic CHF: Chest x-ray imaging with evidence of hyp ervolemia, mild cardiomegaly. Appears mild at the time of imaging. History of systolic CHF, EF 30% noted April 2020. Due to findings avoiding further IV fluid. Full Code NPO
[2025-04-13 02:43] LABS: Reflex Lactic Add Lactic Reflex
[2025-04-13] MEDS: AMIODARONE HCL 900 MG in DEXTROSE 5 % IN WATER 500 ML 34.53 MG IV (03:06)
--- NOTE | 2025-04-13 03:06 | ECG_ITS ---
APPROVED REPORT Exam: Resting ECG HR:90 bpm ECG Measurements Heart Rate 90 AXES GA 167 P 95 QRSd 126 QRS -82 QT 392 T 0 QTc 440 Conclusion SINUS RHYTHM LEFT ANTERIOR FASCICULAR BLOCK [QRS AXIS <= -45, QR IN I, RS IN II] ANTEROSEPTAL MYOCARDIAL INFARCTION , OF INDETERMINATE AGE [40+ ms Q WAVE IN V1-V4] MARKED ST DEPRESSION, CONSIDER SUBENDOCARDIAL INJURY [0.2+ mV ST DEPRESSION] ACUTE PR INTERPRETATION BASED ON A DEFAULT AGE OF 40 YEARS UNCONFIRMED REPORT Electronically signed by : Adams Bangura MD 04/13/2025 08:28:24
[2025-04-13] MEDS: NOREPINEPHRINE BITARTRATE/D5W 8 MG/250 ML PLAST..BAG 18.75 MG IV (03:25)
[2025-04-13 03:30] LABS: Hematocrit 36.6 % (42.0-52.0); Hemoglobin 12.3 g/dL (14.1-18.0); Immature Granulocytes % 0.7 %; Mean Corpuscular HGB Conc 33.6 g/dL (31.8-35.4); Mean Corpuscular Hemoglobin 32.6 pg (27.0-31.2); Mean Corpuscular Volume 97.1 fl (80-94); Nucleated Red Blood Cells % 0 %; Platelet Count 253 K/mm3 (142-424); Red Blood Count 3.77 M/mm3 (4.60-6.20); Red Cell Distribution Width-SD 48.8 fL; White Blood Count 24.3 K/mm3 (4.8-10.8)
--- NOTE | 2025-04-13 03:31 | EXP.EVENT.NO ---
DIANNE RICHARDSON was called overhead for this patient's room at 0250. I presented to bedside immediately and patient was actively receiving chest compressions and being ventilated by ET tube that had been previously placed. IABP was present. Patient appeared to be in wide-complex tachycardic rhythm without a pulse. Reportedly he went into V. tach arrest shortly before DIANNE RICHARDSON was called. ACLS was being performed. Hospitalist, Nicole, requested my input and management of the code. Patient had pupils fixed at 2-3mm, unreactive on my intial evaluation with bilateral breathsounds present with bagging. Warm extremities, femoral pulse palpable during compressions. Compressions were continued while amiodarone bolus was administered for antiarrhythmic properties. Patient is also receiving code dose epi per ACLS algorithm. Pulse check was performed with no palpable pulse, V. tach present. Charged and shocked at 200J followed by immediate continuation of compressions. Patient did have a rhythm change on the monitor and change in end-tidal. Next pulse check patient had palpable pulse as well as ultrasound confirmed pulse. Images were not saved to the permanent archive. ROSC achieved at 0302. Blood pressure on IABP at that time was in the 110s. Hospitalist spoke with Dr. Ayala about this case, because patient was already exhibiting myoclonic jerks and evidence of severe brain damage from suspected anoxia and hypoperfusion, he states this patient has extremely high mortality risk and poor prognosis. Reportedly he did not give any additional recommendations for management at this time. I agree with the thought that he has extremely high mortality at this point. Unfortunately review of records demonstrates he had approximately 30 minutes of CPR performed prior to arrival in the ER after an unwitnessed arrest. This in combination with the pulseless time now includes almost 45 minutes of total known downtime which has an extremely poor prognosis. Patient's blood pressures started to progressively get worse, epinephrine drip was being increased and I asked for norepinephrine to be started, amiodarone drip is running. Patient is on low-dose Versed drip with propofol available if needed for sedation. Hospitalist spoke with family further and reports they are making the patient DNR. Hospitalist is comfortable resuming primary management. Procedures: CPR and ACLS 12 minutes On 04/13/2025, the high probability of a clinically significant, sudden or life threatening deterioration of the following system(s) (cardiac) required my full and direct attention, intervention and personal management. The time I documented below is in addition to time spent performing reported procedures but includes the following listed in this critical care notation. Critical care time: 15 minutes Tatiana Lopez MD
[2025-04-13 03:38] LABS: Anion Gap 17.6 mEq/L (5-15); Blood Urea Nitrogen 24 mg/dl (9-20); Calcium 7.6 mg/dl (8.4-10.2); Carbon Dioxide 16 mmol/L (22.0-30.0); Chloride 99 mmol/L (98-107); Creatinine Clearance Estimated 61 mL/min (50-200); Creatinine,Serum 1.50 mg/dl (0.66-1.25); Estimated Glomerular Filt Rate 47 ml/min (>60); GFR (African American) 56 ML/MIN (>60); Sodium 130 mmol/L (136-145)
[2025-04-13] MEDS: MIDAZOLAM HCL IN 0.9 % NACL/PF 50 MG/50 ML PLAST..BAG 9 MG IV ×2 (03:41→04:00)
[2025-04-13 03:42] LABS: Glucose 447 mg/dl (74-100); Potassium 2.6 mmoL/L (3.5-5.1)
--- NOTE | 2025-04-13 03:44 | PC.NURSE ---
Reached out to the provider for two critical labs, K 2.6 and glucose 447. Nicole Valdez APRN stated that she was going to add orders.
[2025-04-13 03:58] LABS: VBG HCO3 14.2 mmol/L (23-30); VBG PCO2 37.4 mmol/L (35-51); VBG PO2 57.0 mmol/L (28-40)
[2025-04-13 03:59] LABS: Lactate Venous 8.9 mmol/L (0.4-2.0); VBG PH 7.20 mmol/L (7.31-7.41)
[2025-04-13 04:04] LABS: PTT Heparin (inpatient only) 120.3 Seconds (50-75)
[2025-04-13] MEDS: HEPARIN SODIUM,PORCINE/D5W 500 ML 11 UNIT IV (04:35)
[2025-04-13] MEDS: humaLOG 100 UNITS/ML 10ML VIAL (SSI) SUBCUT (04:52)
[2025-04-13 05:16] LABS: Magnesium 1.3 mg/dl (1.6-2.3)
[2025-04-13] MEDS: MAGNESIUM SULFATE IN WATER 2 GM/50 ML PIGGYBACK IV ×2 (05:25→05:50)
--- NOTE | 2025-04-13 05:41 | HMH.ITSTN ---
went to perform the p.cxr and was told to hold off per the Hospitalist, if needed they would call and let radiology know.
[2025-04-13] MEDS: VASOPRESSIN 40 UNIT in 0.9 % SODIUM CHLORIDE 100 ML 4.59 UNIT IV (06:05)
--- NOTE | 2025-04-13 06:30 | PC.NURSE ---
Verbal order to extubate per Nicole Escobar Extubated @ 0635
--- NOTE | 2025-04-13 07:01 | PC.NURSE ---
Contacted [facility] at this time. State they will follow up. Agent- Manas Figueroa. .
--- NOTE | 2025-04-13 07:09 | P.DN_ITS ---
<Statement entered by Benja Frye MD - 04/13/25 09:53> Discussed case at length with nurse practitioner, patient prior to my examination. Did evaluate shortly after his however. Agree with treatment course. Unfortunate case of ostial occluded LAD leading to cardiac arrest and despite heroic efforts for reperfusion. Patient had cardiogenic shock and went into cardiac arrest with V-fib after reperfusion. Family did not want to pursue further resuscitative measures. Documented by User: Nicole Escobar APRN 04/13/25 08:05 Pronouncement Note Date and Time of Date of : 04/13/25 Time of : 06:44 Contributing Factors (1) ST elevation (STEMI) myocardial infarction: (2) Cardiac arrest: (3) Acute hypoxic respiratory failure: (4) MARY ELLEN (acute kidney injury): (5) Hypokalemia: (6) Leukocytosis: (7) Suspected UTI: (8) Pulmonary edema due to fluid overload: (9) Systolic CHF: (10) HLD (hyperlipidemia): (11) CAD (coronary artery disease): (12) Cardiogenic shock: Summary Additional details: 65-year-old male, presented status postcode per EMS. Approximately 30 minutes of CPR performed prior to arrival in the ER after an unwitnessed arrest. Workup within the emergency department significant for STEMI. Patient intubated and emergently transferred to the [facility]. Stents placed to LAD, balloon pump in place. Transferred to ICU. Code blue called 0250, ET tube present. IABP was present. Initial rhythm, V. tach then transitioned into wide-complex tachycardia rhythm without a pulse. ACLS performed. Patient pupils fixed at 2-3mm, unreactive. Compressions Received amiodarone bolus and code dose epi per ACLS algorithm. Shocked at 200J followed by immediate continuation of compressions. ROSC achieved 0302. Event discussed with Dr. Ayala, flying teacher. No further changes requested. Myoclonic jerks present, evident of severe brain damage from suspected anoxia and hypoperfusion. Dr. Ayala states patient has extremely high mortality risk and poor prognosis in which was also discussed with family. Blood pressures progressively declined, epinephrine drip increased, norepinephrine initiated along with amiodarone drip. I discussed in length with family at bedside of patients critical declining state. Family at that time requested DNR status. Approximately 0600 Patient went back into v-tach. Blood pressure began to drop, vassopresin initiated, magnesium sulfate 2 gm ordered. Informed family of change and verified goals. Family then requested to make patient comfort care due to progressive worsening state. All life sustaining medications were discontinued. Comfort medications ordered per and post extubation. Family requested to stay at bedside. Patient extubated and gtts stopped. TOD 0644. Additional Data Confirmation of : no pulse, no respirations, no heart sounds and pupils fixed and dilated Family: at bedside Attending/PCP notified?: Yes Attending physician: Benja Frye MD Was code activated?: No Autopsy should be considered if:: Unknown or unanticipated medical complications Cause is not known with certainty on clinical grounds Would allay concerns of the public/family regarding Unexplained/unexpected apparently natural and not subject to a forensic medical jurisdiction DOA Within 24 hours of admission Sustained or apparently sustained injury while in the hospital Result of high risk, infectious and contagious disease Obstetric and pediatric arising from environmental or occupational hazard Unexplained/unexpected from dental, medical, or surgical diagnostic procedures and/or therapies Would disclose a known or suspected illness which also may have a bearing on survivors or recipients of transplanted organs Documented by User: Benja Frye MD 04/13/25 17:21 Pronouncement Note PCOD Preliminary cause of : Cardiac arrest with ventricular fibrillation Contributing Factors (1) ST elevation (STEMI) myocardial infarction: Contributing factors: Type 1 due to Ostially occluded LAD (2) Cardiac arrest: (3) Acute hypoxic respiratory failure: (4) MARY ELLEN (acute kidney injury): (5) Hypokalemia: (6) Leukocytosis: (7) Suspected UTI: (8) Pulmonary edema due to fluid overload: (9) Systolic CHF: (10) HLD (hyperlipidemia): (11) CAD (coronary artery disease): (12) Cardiogenic shock: Additional Data Autopsy requested?: No Does not meet criteria (after eval by hotel front desk clerk) glove examiner notified?: Yes Organ bank notified?: Yes Advance directives: No
--- NOTE | 2025-04-13 07:15 | PC.NURSE ---
At approximately 0249 pt started to have sustained runs of Vtach. Provider was notified, and came to bedside. 0251 - Code blue button was pressed and compressions were started, and crash cart brought into the room. 0253 - The first round of epi was administered. 0255 - Pulse check with no pulse, compressions resumed. 0255 - Amioderone push was given 0256 - Second round of epi given 0258 - Pulse check with no pulse, compressions resumed. 0259 - Third round of epi given 0301 - Pulse check with no pulse, shock ordered at 200 J per M. John BURT 0302- ROSC succssful at 0302 0306 - Amioderone was given at 1mg/min per verbal order from Margareth Lopez MD. Per M John BURT resume all drips, along with Levophed drip per protocol. Present in the Room : Yvonne Garces RN, Renu MURRAY, Nicole Escobar APRN, Margareth Lopez MD, Cyn Vazquez RN, Adam MEYER, Shereen OCAMPO, Albina King RNphotonics engineering technologist, Margareth MEYERphotonics engineering technologist.
--- NOTE | 2025-04-13 07:38 | PC.NURSE ---
At 0520, pt noted to be in SVT again. Nicole Escobar notified and came to bedside. Magnesium run x2, 10mg lidocaine IVP, 500ml NS bolus ordered. Pt BP trending down, SBP 70s, both pressors maxed at this time. Nicole orders vasopressin at this time. Family state they would like to call in rest of family and make pt comfort care. Pt currently in SVT at this time. Pt quickly becomes maxed on vasopressin. Nicole notified and comes to bedside to speak with family. Family state they would like pt to be comfort care now and to stop all current medications, extubate, and stop balloon pump. RT notified @ 0630 Pt extubated and all medications turned off @ 0635 Pt TOD 0644.
--- NOTE | 2025-04-13 07:40 | PC.NURSE ---
Registered Nurse Post Partum at bedside. Gave OK to go ahead and remove all tubes and once [facility] releases the body then home will be called.
[2025-04-13 07:48] LABS: PTT Heparin (inpatient only) 143.8 Seconds (50-75)
--- NOTE | 2025-04-13 08:05 | P.EN_ITS ---
65-year-old male, presented status postcode per EMS. Approximately 30 minutes of CPR performed prior to arrival in the ER after an unwitnessed arrest. Workup within the emergency department significant for STEMI. Patient intubated and emergently transferred to the [facility]. Stents placed to LAD, balloon pump in place. Transferred to ICU. Code blue called 0250, ET tube present. IABP was present. Initial rhythm, V. tach then transitioned into wide-complex tachycardia rhythm without a pulse. ACLS performed. Patient pupils fixed at 2-3mm, unreactive. Compressions Received amiodarone bolus and code dose epi per ACLS algorithm. Shocked at 200J followed by immediate continuation of compressions. ROSC achieved 0302. Event discussed with Dr. Ayala, assistant shift supervisor. No further changes requested. Myoclonic jerks present, evident of severe brain damage from suspected anoxia and hypoperfusion. Dr. Ayala noted patient has extremely high mortality risk and poor prognosis in which was also discussed with family. Blood pressures progressively declined, epinephrine drip increased, norepinephrine initiated along with amiodarone drip. I discussed in length with family at bedside of patients critical declining state. Family at that time requested DNR status.
--- NOTE | 2025-04-13 09:06 | PC.NURSE ---
Mary with [facility] called wanting numbers for family so they can potentially harvest.
--- NOTE | 2025-04-13 09:09 | PC.NURSE ---
Jonny COOPER spoke to Ness to update them with next of kin information so they could contact them. At this time we will continue to wait until family consents or they are ruled out
--- NOTE | 2025-04-13 12:03 | PC.NURSE ---
Ice packs have been applied to patients groin and arm pits
--- NOTE | 2025-04-13 12:09 | PC.NURSE ---
At 1203 [facility] was contacted for an update. Danae Maxwell RN spoke with Erin she advised that the recovery teams have been alerted. They are going to harvest the patients tissue and they will do that at their facility.
--- NOTE | 2025-04-13 12:30 | PC.NURSE ---
at 1230 [facility] team at bedside to pick patient up.
== END 2025-04-13 12:38 | disposition expired | DRG 270 ==
LOC: ER 22:49 → 2ND 23:38
PROVIDERS: Emergency Medicine; Internal Medicine; Nurse Practitioner Acute Care; Admitting Provider Internal Medicine Adolescent Medicine; Emergency Provider Student in an Organized Health Care Education/Training Program; PCP Family Medicine; Visit Provider Internal Medicine Adolescent Medicine
PROC: 4A023N7 Measurement of Cardiac Sampling and Pressure, Left Heart, Percutaneous Approach (ICD-10-PCS; CPT 93452; principal; 2025-04-12 10:35)
DX: I21.09 ST elevation (STEMI) myocardial infarction involving other coronary artery of anterior wall (principal); J96.01 Acute respiratory failure with hypoxia; I50.22 Chronic systolic (congestive) heart failure; N17.9 Acute kidney failure, unspecified; N39.0 Urinary tract infection, site not specified; E87.20 Acidosis, unspecified; R57.0 Cardiogenic shock; Z66 Do not resuscitate; I25.10 Atherosclerotic heart disease of native coronary artery without angina pectoris; I46.9 Cardiac arrest, cause unspecified; E78.5 Hyperlipidemia, unspecified; E87.6 Hypokalemia; I49.01 Ventricular fibrillation; R56.9 Unspecified convulsions; Z79.82 Long term (current) use of aspirin; Z79.02 Long term (current) use of antithrombotics/antiplatelets; Z95.5 Presence of coronary angioplasty implant and graft
CPT/HCPCS: 36600; 51702; 71045; 80048; 80053; 80061; 81001; 82803; 83605; 83735; 84484; 85007; 85025; 85347; 85730; 87040; 87070; 87086; 87205; 89220; 92950; 93005; 94002; 99152; 99153; 99285; C1725; C1769; C1874; C1894; J0169; J0282; J0330; J1644; J2250; J2251; J2598; J2704; J3475; J3480; J7030; J7040; J7050; J7060; Q9966